=== PATIENT | male | born 1985 | race African-American/Black ===

== ENCOUNTER 2025-02-12 20:10 | Inpatient (IN) | payer MEDICAID, OTHER ==
[~2025-02-12] VITALS: Ht 172.7 cm; Wt 128.3 kg
--- NOTE | 2025-02-12 20:21 | ED.PDOC ---
SOB-HPI HPI Comments HPI: 39 year old male presents to the emergency department via EMS with a chief complaint of hemoptysis onset 4 days. Per EMS, patient has been experiencing hemoptysis as well as BLE swelling for the past 4 days. Patient is on Eliquis and Lasix, has not been complaint with medication for the past 11 days. Currently he has 16% EF, has been seen multiple times at [facility] for similar symptoms. Denies shortness of breath, chest pain, numbness/tingling, dizziness, fever, chills. No other symptoms or modifying factors present at this time. Initial Vitals BP: 141/76 HR: 118 RR: 22 O2 Sat: 99% Temp: 98.9 F Past Medical history: IA-x3, CHF, HTN, HLD, DM, PE, DVT Past Surgical history: IVC filter Medications: Lasix, Eliquis, Metoprolol Social History: Denies smoking, ETOH, and drug use. Allergies: NKDA HPI: Poor Historian. bianca concepcion: tachy, resp distress, cough blood. obese, tachy, sob, cough REVIEW OF SYSTEMS: CONSTITUTIONAL: Denies acute: fever, diaphoresis, chills, HEAD: Denies acute: headache, photophobia Eyes: Denies acute: Double vision, vision loss, eye pain, eye discharge. EARS: Denies acute: tinnitus, hearing loss, ear discharge, ear pain, THROAT: Denies acute: sore throat, swelling, difficulty swallowing , pain with swallowing, change in voice. NECK: Denies acute: neck pain, neck swelling, stiff neck. HEART: Denies acute : chest pain, palpitations, LUNGS: Denies acute: wheezing, ABDOMEN: Denies acute: abdominal pain, Nausea, Vomiting, diarrhea, melena , hematemesis, hematochezia SKIN: Denies acute: rash, redness, lesions, itchiness. EXTREMITIES: Denies acute: calf pain, numbness, tingling, weakness, denies pain in extremity. Denies acute: Low back pain. Neuro: Denies acute: focal neurological deficit, motor or sensory focal neurological deficit, tremors, seizure like activity, confusion, dizziness, change in mental status, loss of bowel or bladder function, cauda equina like symptoms. : Denies acute: dysuria, hematuria, flank pain, increase in urinary frequency. PSYCH: Denies acute: hallucination, suicidal ideation, homicidal ideation. FEMALE: Denies acute: abnormal vaginal bleeding, foul odor, unusual discharge. PHYSICAL EXAM: General: ----moderate----acute distress, awake and alert. Head: normocephalic, atraumatic. No raccoon's eyes, no chicas sign. Neck: supple, trachea is midline, no swelling. Throat: Normal phonation. Eyes:, no erythema, no purulent discharge, no proptosis, no icterus. Heart: regular tachycardia, no significant murmur appreciated. Lungs: Mild respiratory distress, Able to speak in full sentences. No wheezing, no rhonchi, no crackles. No stridors Clear to auscultation bilaterally. Abdomen: non tender to palpation, non distended, soft, no guarding, no rebound, + bowel sounds. Obese Neuro: Awake, Alert, oriented to name, self, situation, follows commands GCS=15. Speech is normal. Skin: no petechia, no purpura, no cyanosis, non-pale, not jaundice. Lower extremities: --2/4 bilateral - Pitting edema no deformity, no focal swelling, no calf TTP. Makes eye contact. moves all four extremities. Face: no apparent facial droop. ED COURSE: DISCLAIMER: This medical document was created using an electronic medical record system with voice recognition software and computerized dictation system. Although this document has been carefully reviewed, there might still be some phonetic and typographical errors. Occasional wrong-word or "sound-alike" substitutions may have occurred due to the inherent limitations of voice recognition software. These areas are purely typographical due to imperfections of the software programs and do not reflect any compromise in the patient's medical care. Please read the chart carefully and recognize, using context, where these substitutions have occurred. Time Seen by MD: 20:10 Reviewed notes: Medications, Allergies Information Source: Patient, Emergency Med Personnel Mode of Arrival: EMS Timing: Days Duration: Since onset Prehospital treatment: None Past Medical History PAST MEDICAL HISTORY: CHF, DM, High Lipids, HTN, IA, PE Past Medical History (Other): DVT Surgical History (Other): IVC filter Family History Family History: Reviewed,noncontributory to illness, No family hx of Cancer, No family hx of DM, No family hx of Heart lydia, No family hx of HTN, No family hx ofKidney lydia, No family hx of Liver lydia, No family hx of Lung lydia, No family hx of Stroke Social History Smoker: Non-Smoker Alcohol: Denies ETOH Use Drugs: Denies Drug Use Lives In: Home EKG EKG : Pulse Rate (adult): 116 Cardiac Rhythm: ST ST: Nonsp (T wave lead I, and V6) Was a procedure done? Was a procedure done?: No X-Ray, Labs, Meds, VS Vital Signs Date Time Temp Pulse Resp B/P (MAP) Pulse Ox O2 Delivery O2 Flow Rate FiO2 02/12/25 21:00 115 02/12/25 20:22 98.8 118 22 141/76 99 98.8 02/12/25 20:21 116 02/12/25 20:17 116 Lab Test 02/12/25 21:25 02/12/25 21:00 02/12/25 20:40 Range/Units Urine Color Pending Urine Clarity Pending Urine pH Pending Urine Specific [place] Pending Urine Protein Pending Urine Ketones Pending Urine Blood Pending Urine Nitrite Pending Urine Bilirubin Pending Urine Urobilinogen Pending Urine Leukocyte Esterase Pending Urine RBC Pending Urine Microscopic WBC Pending Urine Squamous Epithelial Cells Pending Urine Bacteria Pending Urine Glucose Pending Troponin I High Sensitivity Pending 75 *H </=54 ng/L Influenza Type A Antigen Pending Influenza Type B Antigen Pending SARS-CoV-2 Antigen (Rapid) Pending White Blood Count 26.0 H 4.4-10.8 10^3/uL Red Blood Count 4.64 4.5-5.90 10^6/uL Hemoglobin 12.7 L 13.5-17.5 g/dL Hematocrit 39.2 L 41.0-53.0 % Mean Corpuscular Volume 84.4 80.0-100.0 fL Mean Corpuscular Hemoglobin 27.3 L 28.0-32.0 pg Mean Corpuscular Hemoglobin Concent 32.4 32.0-36.0 g/dL Red Cell Distribution Width 14.2 11.8-14.3 % Platelet Count 315 140-450 10^3/uL Mean Platelet Volume 9.8 6.9-10.8 fL Neutrophils (%) (Auto) 37.0-80.0 % Lymphocytes (%) (Auto) 10.0-50.0 % Monocytes (%) (Auto) 0.0-12.0 % Basophils (%) (Auto) 0.0-2.0 % Neutrophils # (Auto) 1.6-8.6 10 ^3/uL Lymphocytes # (Auto) 0.4-5.4 10 ^3/uL Monocytes # (Auto) 0-1.3 10 ^3/uL Differential Total Cells Counted Pending Neutrophils % (Manual) Pending Band Neutrophils % (Manual) Pending Lymphocytes % (Manual) Pending Monocytes % (Manual) Pending Eosinophils % (Manual) Pending Basophils % (Manual) Pending Metamyelocytes % (manual) Pending Myelocytes % (Manual) Pending Promyelocytes % (Manual) Pending Blast Cells % (Manual) Pending Reactive Lymphocytes Pending Platelet Estimate Pending Prothrombin Time Pending Prothrombin Time INR Pending Activated Partial Thromboplast Time Pending Sodium Level 134 L 136-145 mmol/L Potassium Level 4.6 3.5-5.1 mmol/L Chloride Level 99 98-107 mmol/L Carbon Dioxide Level 22 20-31 mmol/L Anion Gap 13 5-15 Blood Urea Nitrogen 17 9-23 mg/dL Creatinine 1.58 H 0.700-1.30 mg/dL Glomerular Filtration Rate Calc 56 >90 mL/min BUN/Creatinine Ratio 10.8 10.0-20.0 Serum Glucose 119 H 74-106 mg/dL Lactic Acid Level 2.2 *H 0.4-2.0 mmol/L Calcium Level 8.7 8.7-10.4 mg/dL Magnesium Level 1.9 1.6-2.6 mg/dL Total Bilirubin 2.6 H 0.2-1.0 mg/dL Aspartate Amino Transferase (AST) 71 H 13-40 U/L Alanine Aminotransferase (ALT) 72 H 7-40 U/L Alkaline Phosphatase 83 46-116 U/L B-Type Natriuretic Peptide 3033.48 0-100 pg/mL Total Protein 7.1 5.7-8.2 g/dL Albumin 3.8 3.2-4.8 g/dL [facility] [id number] [facility] [address] Ph: [phone] DIAGNOSTIC IMAGING Diagnostic Imaging Report : [id number] Signed PATIENT: BIANCA CONCEPCION ACCT: [id number] UNIT: [id number] : 1985 LOC: ER ROOM / BED: / AGE / SEX: 39 / M ADM STATUS: REG ER SERVICE 14 ORDERING PHYSICIAN: ADELINE CAMPOVERDE DO PROCEDURE(s): CXRP - CHEST PORTABLE REASON: sob ORDER NUMBER(s): [id number], ACCESSION NUMBER(s): [id number] CHEST RADIOGRAPH INDICATION: sob TECHNIQUE: Single frontal view of the chest was obtained COMPARISON: None FINDINGS: Lines and Tubes: None Lungs: Questionable mild interstitial pulmonary edema. Pleura: No effusion. No pneumothorax. Cardiomediastinal contours: Cardiomegaly. Bones: Unremarkable IMPRESSION: 1. Cardiomegaly. 2. Questionable mild interstitial pulmonary edema. ATED BY: CHALO HASTINGS MD DICTATED DATE/TIME: 02/12/252044 SIGNED BY: CHALO HASTINGS MD SIGNED DATE/TIME: 02/12/252044 CC: Time of 1ST Reevaluation: 20:40 Reevaluation 1ST: Unchanged Patient Education/Counseling: Diagnosis, Treatment Family Education/Counseling: No Family Present Departure 1 Departure Time of Disposition: 20:46 Impression: Primary Impression: Acute respiratory distress Additional Impressions: Nonadherence to medication CHF exacerbation Fever Sepsis Leukocytosis Elevated troponin Disposition: ADMITTED INPATIENT Admit to: [facility] Condition: Guarded Discharged With: Self Critical Care Note Critical Care Time?: No I personally scribed for ADELINE CAMPOVERDE DO ([email or web address]) on 02/12/25 at 20:21. Electronically submitted by Colleen Rivero ([email or web address]). I personally scribed for ADELINE CAMPOVERDE DO ([email or web address]) on 02/12/25 at 20:51. Electronically submitted by Colleen Rivero ([email or web address]). I personally scribed for ADELINE CAMPOVERDE DO ([email or web address]) on 02/12/25 at 21:16. Electronically submitted by Colleen Rivero ([email or web address]). ADELINE CAMPOVERDE DO Feb 12, 2025 20:21
--- NOTE | 2025-02-12 20:47 | DVH ---
CHEST RADIOGRAPH INDICATION: sob TECHNIQUE: Single frontal view of the chest was obtained COMPARISON: None FINDINGS: Lines and Tubes: None Lungs: Questionable mild interstitial pulmonary edema. Pleura: No effusion. No pneumothorax. Cardiomediastinal contours: Cardiomegaly. Bones: Unremarkable IMPRESSION: 1. Cardiomegaly. 2. Questionable mild interstitial pulmonary edema.
[2025-02-12 20:53] VITALS: O2SAT 93
[2025-02-12 20:59] LABS: Hematocrit 39.2 % (41.0-53.0); Hemoglobin 12.7 g/dL (13.5-17.5); Mean Corpuscular Hemoglobin 27.3 pg (28.0-32.0); Mean Corpuscular Volume 84.4 fL (80.0-100.0)
[2025-02-12 21:16] LABS: Albumin 3.8 g/dL (3.2-4.8); Alkaline Phosphatase 83 U/L (46-116); Anion Gap 13 (5-15); BUN/Creatinine Ratio 10.8 (10.0-20.0); Blood Urea Nitrogen 17 mg/dL (9-23); Calcium 8.7 mg/dL (8.7-10.4); Carbon Dioxide 22 mmol/L (20-31); Chloride 99 mmol/L (98-107); Magnesium 1.9 mg/dL (1.6-2.6); Potassium 4.6 mmol/L (3.5-5.1); Total Protein 7.1 g/dL (5.7-8.2)
[2025-02-12 21:28] LABS: Alanine Aminotransferase 72 U/L (7-40); Bilirubin, Total 2.6 mg/dL (0.2-1.0); Glucose 119 mg/dL (74-106); Sodium 134 mmol/L (136-145)
[2025-02-12 21:33] LABS: Lactic Acid w/Reflex 2.2 mmol/L (0.4-2.0)
[2025-02-12] MEDS: VANCOMYCIN 1GM/250ML KIT 250 ML IV ONE (21:43)
[2025-02-12] MEDS: FUROSEMIDE 100 MG/10ML VIAL IV ONE (21:44)
[2025-02-12 21:48] LABS: INR 1.37 (0.9-1.15); Partial Thromboplastin Time 33.4 SEC (24.5-34.5); Prothrombin Time 14.1 sec (9.3-11.8)
--- NOTE | 2025-02-12 21:50 | ECG ---
[facility] Test Date: 2025-02-12 Test Time: 20:17:53 Pat Name: BIANCA MICHELE Department: [facility] ED Patient ID: [id number] Room: 0223T Gender: M Lacquerer: KANDACE : 1985 Requested By: ADELINE CAMPOVERDE Order Number: [id number] Reading MD: Justin Dowell Measurements Intervals Filley Rate: 116 P: 38 DE: 137 QRS: 84 QRSD: 152 T: 243 QT: 333 QTc: 463 Interpretive Statements Sinus tachycardia LAE, consider biatrial enlargement Nonspecific intraventricular conduction delay Borderline T abnormalities, lateral leads Electronically Signed On 02-15-2025 10:30:30 PST by Justin Dowell Please click the below link to view image of tracing.
[2025-02-12 21:53] LABS: COVID19 ANTIGEN SOFIA FIA NEGATIVE (NEGATIVE)
[2025-02-12] MEDS: ACETAMINOPHEN 325 MG TAB PO ONE (21:54)
[2025-02-12 22:03] LABS: Total Cells Counted 100.0 (100)
[2025-02-12 22:04] LABS: Anisocytosis Slight
[2025-02-12 23:15] LABS: Urine Protein, UAD 2+ (Negative)
[2025-02-12 23:23] LABS: Amphetamine Screen, Urine Neg (NEGATIVE)
[2025-02-12 23:29] LABS: Barbiturate Scree,Urine Neg (NEGATIVE); Benzodiazephine Screen, Urine Neg (NEGATIVE); Cannabinoid Screen, Urine Neg (NEGATIVE); Cocaine Screen, Urine Neg (NEGATIVE); Opiate Scree,Urine Neg (NEGATIVE); Phencyclidine Screen, Urine Neg (NEGATIVE)
[2025-02-12] MEDS: CEFEPIME 1GM/50ML 50 ML IV ONE (23:43)
[2025-02-12] MEDS ORDERED: ONDANSETRON HCL 4 MG/2 ML VIAL IV PRN (23:45)
[2025-02-13] VITALS (9 sets, daily range): BP systolic 102–162; BP diastolic 67–79; PULSE 95–107; RESP 17–20; TEMP 97.6–98.8; O2SAT 95–98
[2025-02-13] MEDS: ACETAMINOPHEN 325 MG TAB PO SCH
--- NOTE | 2025-02-13 00:34 | DVH ---
Bilateral lower extremity venous duplex CLINICAL HISTORY: r/o dvt COMPARISON: None TECHNIQUE: Duplex Doppler evaluation of the deep venous systems of both lower extremities from the common femoral veins to the popliteal veins including color Doppler and spectral/pulsed waveform analysis was performed. FINDINGS: RIGHT SIDE: The common femoral vein demonstrates appropriate compressibility and waveform variability. There is compressibility/patency of the great saphenous vein at the proximal thigh. The femoral vein demonstrates appropriate compressibility and waveform variability. The deep femoral vein demonstrates appropriate compressibility and waveform variability. The popliteal vein demonstrates appropriate compressibility and waveform variability. There is normal compressibility at the tibioperoneal trunk. LEFT SIDE: The common femoral vein demonstrates appropriate compressibility and waveform variability. There is compressibility/patency of the great saphenous vein at the proximal thigh. The femoral vein demonstrates appropriate compressibility and waveform variability. The deep femoral vein demonstrates appropriate compressibility and waveform variability. The popliteal vein demonstrates appropriate compressibility and waveform variability. There is normal compressibility at the tibioperoneal trunk. IMPRESSION: 1. No right or left femoropopliteal venous thrombosis.
[2025-02-13] MEDS: IOHEXOL 350 MG/ML 100ML IJ ONE (01:22)
[2025-02-13] MEDS: AZITHROMYCIN 250 MG TAB PO ONE (02:05)
[2025-02-13] MEDS: FUROSEMIDE 40 MG/4 ML VIAL IV ONE (02:09)
[2025-02-13] MEDS: SPIRONOLACTONE 25 MG TAB PO ONE (02:09)
--- NOTE | 2025-02-13 02:13 | DVHHPRES ---
History of Present Illness Resident Creating Document: NAMAN HERNANDEZ History of Present Illness Patient is a 39-year-old male with past medical history of HFrEF, hyperlipidemia, PE, DVT, hypertension who came to the ED with chief complaints of bilateral leg swelling since 4 days and shortness of breaths since yesterday patient also states that he has had hemoptysis since 3 days, dry cough. Patient states that he has not been taking his medication since 11 days due to pharmacy issues. Patient states that his current ejection fraction is 16% which was in in [facility]. Patient denies any fever, chills, nausea, vomiting. PMHx: HFrEF, hyperlipidemia, PE, DVT, hypertension PSHx: Denies Family history: reviewed, noncontributory Social history: denies smoking, drinking, drug use but states that he is exposed to passive smoking from coworkers Home medication: Eliquis, Lasix, metoprolol, Jardiance, Entresto, Allergic history: denies Patient seen at bedside. Patient denies any shortness for breath, chest pain, palpitations, nausea, vomiting. patient states his leg swelling has become worse since 4 days. Review of Systems Constitutional: No: Fever, Chills, Sweats, Weakness, Malaise, Other Eyes: No: Pain, Vision change, Conjunctivae inflammation, Eyelid inflammation, Other, Redness ENT: No: Ear pain, Ear discharge, Nose pain, Nose discharge, Nose congestion, M outh pain, Mouth swelling, Throat pain, Throat swelling, Other Respiratory: Cough, Shortness of breath, Hemoptysis; No: Dry, SOB with excertion, Wheezing, Pleuritic Pain, Sputum, Wheezing, Other Cardiovascular: No: Chest Pain, Palpitations, Orthopnea, Paroxysmal Noc. Dyspnea, Edema, Lt Headedness, Other Gastrointestinal: No: Nausea, Vomiting, Abdominal Pain, Diarrhea, Constipation, Melena, Hematochezia, Other Genitourinary: No Dysuria, No Frequency, No Incontinence, No Hematuria, No Retention, No Other Musculoskeletal: No: other, neck pain, shoulder pain, arm pain, back pain, hand pain, leg pain, foot pain Skin: No: Rash, Lesions, Jaundice, Bruising, Other Neurological: No: Weakness, Numbness, Incoordination, Change in speech, Confusion, Seizures, Other Allergies: Coded Allergies: NO KNOWN ALLERGIES (Unverified , 02/12/25) Medications Current Medications Medications Dose Ordered Sig/Laine Route Start Time Stop Time Status Last Admin Dose Admin Ondansetron HCl 4 mg Q4HP PRN IV 02/12/25 23:45 Acetaminophen 650 mg Q6HR PO 02/13/25 00:00 Exam Vital Signs Vital Signs Date Time Temp Pulse Resp B/P (MAP) Pulse Ox O2 Delivery O2 Flow Rate FiO2 02/13/25 00:43 99.3 02/13/25 00:00 103 101/66 (78) 95 02/12/25 20:53 Room Air* 0 21 02/12/25 20:53 21 Exam General: Patient alert and oriented in person, place and time. Patient following commands. HEENT: Normocephalic, atraumatic, moist mucous membranes Respiratory/pulmonary: Clear lungs bilaterally, vesicular murmurs present in almost all lung nur, no associated crackles or wheezes. Cardiovascular: Normal heart sounds S1 and S2 with no associated murmurs Abdomen: Abdomen nondistended, there is no pain to palpation in any of the abdominal quadrants, no palpable masses. Abdomen obese Extremities: bilateral 2+ pitting edema, hyperpigmented Peripheral Pulses: 3+ Radial (R). 3+ Radial (L). 3+ Dorsalis pedis (R). 3+ Dorsalis pedis(L) Skin: No rashes or pruritus, there is no sacral edema present at this time. Labs/Xrays Labs Test 02/12/25 23:40 02/12/25 22:48 02/12/25 22:34 02/12/25 21:00 Range/Units Troponin I High Sensitivity 70 *H </=54 ng/L Urine Color Yellow Yellow Urine Clarity Clear Clear Urine pH 6.0 5.0-9.0 Urine Specific [place] 1.012 1.001-1.035 Urine Protein 2+ H Negative Urine Ketones Negative Negative Urine Blood 2+ H Negative /uL Urine Nitrite Negative Negative Urine Bilirubin Negative Negative Urine Urobilinogen 2 H Negative mg/dL Urine Leukocyte Esterase Negative Negative /uL Urine RBC 1 0 - 3 /hpf Urine Microscopic WBC < 1 0-3 /HPF Urine Squamous Epithelial Cells Few <5 /hpf Urine Bacteria None Seen /hpf Urine Granular Casts Few 0 /lpf Urine Glucose 4+ H Normal mg/dL Urine Opiates Screen Neg NEGATIVE Urine Fentanyl Screen Neg NEGATIVE Urine Barbiturates Screen Neg NEGATIVE Urine Phencyclidine Screen Neg NEGATIVE Urine Amphetamines Screen Neg NEGATIVE Urine Benzodiazepines Screen Neg NEGATIVE Urine Cocaine Screen Neg NEGATIVE Urine Cannabinoids Screen Neg NEGATIVE Lactic Acid Level 1.6 0.4-2.0 mmol/L Influenza Type A Antigen Negative Negative Influenza Type B Antigen Negative Negative SARS-CoV-2 Antigen (Rapid) Negative NEGATIVE Test 02/12/25 20:40 Range/Units White Blood Count 26.0 H 4.4-10.8 10^3/uL Red Blood Count 4.64 4.5-5.90 10^6/uL Hemoglobin 12.7 L 13.5-17.5 g/dL Hematocrit 39.2 L 41.0-53.0 % Mean Corpuscular Volume 84.4 80.0-100.0 fL Mean Corpuscular Hemoglobin 27.3 L 28.0-32.0 pg Mean Corpuscular Hemoglobin Concent 32.4 32.0-36.0 g/dL Red Cell Distribution Width 14.2 11.8-14.3 % Platelet Count 315 140-450 10^3/uL Mean Platelet Volume 9.8 6.9-10.8 fL Neutrophils (%) (Auto) 37.0-80.0 % Lymphocytes (%) (Auto) 10.0-50.0 % Monocytes (%) (Auto) 0.0-12.0 % Basophils (%) (Auto) 0.0-2.0 % Neutrophils # (Auto) 1.6-8.6 10 ^3/uL Lymphocytes # (Auto) 0.4-5.4 10 ^3/uL Monocytes # (Auto) 0-1.3 10 ^3/uL Differential Total Cells Counted 100.0 100 Neutrophils % (Manual) 77 37.0-80.0 Band Neutrophils % (Manual) 2 Lymphocytes % (Manual) 10 10.0-50.0 Monocytes % (Manual) 11 0-12 Eosinophils % (Manual) 0 0-7 Basophils % (Manual) 0 0.0-2.0 Metamyelocytes % (manual) 0 Myelocytes % (Manual) 0 Promyelocytes % (Manual) 0 Blast Cells % (Manual) 0 Reactive Lymphocytes 0 Platelet Estimate Adequate Large Platelets Few Anisocytosis (manual) Slight Prothrombin Time 14.1 H 9.3-11.8 sec Prothrombin Time INR 1.37 H 0.9-1.15 Activated Partial Thromboplast Time 33.4 24.5-34.5 SEC Sodium Level 134 L 136-145 mmol/L Potassium Level 4.6 3.5-5.1 mmol/L Chloride Level 99 98-107 mmol/L Carbon Dioxide Level 22 20-31 mmol/L Anion Gap 13 5-15 Blood Urea Nitrogen 17 9-23 mg/dL Creatinine 1.58 H 0.700-1.30 mg/dL Glomerular Filtration Rate Calc 56 >90 mL/min BUN/Creatinine Ratio 10.8 10.0-20.0 Serum Glucose 119 H 74-106 mg/dL Calcium Level 8.7 8.7-10.4 mg/dL Magnesium Level 1.9 1.6-2.6 mg/dL Total Bilirubin 2.6 H 0.2-1.0 mg/dL Aspartate Amino Transferase (AST) 71 H 13-40 U/L Alanine Aminotransferase (ALT) 72 H 7-40 U/L Alkaline Phosphatase 83 46-116 U/L B-Type Natriuretic Peptide 3033.48 0-100 pg/mL Total Protein 7.1 5.7-8.2 g/dL Albumin 3.8 3.2-4.8 g/dL SEPSIS Sepsis Screen Date sepsis recognized/suspect: Feb 13, 2025 Time Sepsis recognized/suspect: 0025 Recent Procedure: No On Antibiotic Therapy: No Respiratory Rate >20: Yes Heart Rate >90: Yes Temp<36 C (96.8 F) or >38.3 C: Yes SBP <90 or MAP <65 mmHG: No New Acute Mental Status Change: No Is the patient on CPAP, BIPAP,: No Physician Orders Service Restorer Emergency (02/12/25 ) Heplock Iv (02/12/25 ) Chest Portable (02/12/25 20:15) Accucheck (02/12/25 21:16) Blood Culture (02/12/25 21:16) Notify Md If Map <65 Or Bp<90 (02/12/25 21:16) If Map<65 Start Vasopressor (02/12/25 21:16) Sepsis Fluid Exclusion: (02/12/25 21:16) Sepsis Reassesment After Fluid (02/12/25 22:16) Admit (02/12/25 23:35) Code Status (02/12/25 23:35) Ondansetron Hcl (Zofran) (02/12/25 23:45) Complete Blood Count (02/13/25 04:00) Comprehensive Metabolic Panel (02/13/25 04:00) Cardiac Diet-2gna,Lofat,Lochol (02/13/25 Breakfast) Echo 2d Mode Cardiac Dop (02/12/25 23:35) Condition: Serious (02/12/25 23:35) Acetaminophen Tablet (Tylenol Tablet) (02/13/25 00:00) Bedrest With Bathroom Privileg (02/12/25 23:35) Oxygen By Nasal Cannula (02/12/25 23:35) Stat Ekg For Chest Pain (02/12/25 23:35) Notify Md Of Changes From Base (02/12/25 23:35) Chemic Mangler For 24 Hours (02/12/25 23:35) Emergency Dysrhythmia Protocol (02/12/25 23:35) Rhythm Strips Once Every Shift (02/12/25 23:35) Bilat Lower Dvt (02/12/25 23:40) Ct Angio Chest Contrast (02/13/25 00:09) Enoxaparin Sodium (Lovenox) (02/13/25 10:00) Respiratory Culture W/ Gs (02/13/25 01:28) Covid19 Antigen Jess (02/13/25 ) Rapid Influenza A&B (02/13/25 01:28) Thyroid Stimulating Hormone (02/13/25 01:28) Hemoglobin A1c (02/13/25 01:34) Furosemide Injection (Lasix Injection) (02/14/25 10:00) Spironolactone (Aldactone) (02/14/25 10:00) Azithromycin Tablet (Zithromax Tablet) (02/14/25 10:00) Document Home Meds (02/13/25 ) Ceftriaxone 2gm/50ml (Rocephin 2gm/50ml) (02/13/25 02:00) Ceftriaxone 2gm/50ml (Rocephin 2gm/50ml) (02/13/25 10:00) Strict I&O (02/13/25 ) Vital Signs Date Time Temp Pulse Resp B/P (MAP) Pulse Ox O2 Delivery O2 Flow Rate FiO2 02/13/25 00:43 99.3 02/13/25 00:00 99.3 103 101/66 (78) 95 99.3 02/12/25 23:00 99.3 106 113/60 (77) 95 99.3 02/12/25 21:54 102.5 02/12/25 21:44 140/36 02/12/25 21:00 115 02/12/25 20:53 93 Room Air* 0 21 02/12/25 20:53 102.5 111 21 134/85 (101) 93 102.5 02/12/25 20:22 98.8 118 22 141/76 99 98.8 02/12/25 20:21 116 02/12/25 20:17 116 Laboratory Tests Test 02/12/25 20:40 02/12/25 22:34 Lactic Acid Level 2.2 mmol/L (0.4-2.0) *H 1.6 mmol/L (0.4-2.0) White Blood Count 26.0 10^3/uL (4.4-10.8) H Medications Medications Dose Ordered Sig/Laine Route Start Time Stop Time Status Last Admin Dose Admin Acetaminophen 650 mg ONCE ONCE PO 02/12/25 22:00 02/12/25 22:01 DC 02/12/25 21:54 650 MG Cefepime HCl 50 ml @ 12.5 mls/hr ONCE ONCE IV 02/12/25 21:30 02/13/25 01:29 DC 02/12/25 23:43 12.5 MLS/HR Furosemide 60 mg ONCE ONCE IV 02/12/25 20:15 02/12/25 20:17 DC 02/12/25 21:44 60 MG Vancomycin HCl 250 ml @ 250 mls/hr ONCE ONCE IV 02/12/25 21:30 02/12/25 22:29 DC 02/12/25 21:43 250 MLS/HR Assessment/Plan Assessment/Plan Sepsis due to pneumonia Acute hypoxic respiratory failure due to pneumonia / CHF exacerbation Acute on chronic CHF exacerbation Volume overload Pulmonary embolism - CT angio showed Occlusive right lower lobar branch pulmonary embolus and multifocal nonocclusive subsegmental branch pulmonary emboli. No definite evidence of right heart strain. Small bilateral pleural effusions and multifocal partially consolidative bilateral lower lobe parenchymal infiltrate - chest x-ray showed Cardiomegaly. Questionable mild interstitial pulmonary edema. - heparin drip - IV fluids restricted due to CHF - blood, sputum culture - Check COVID flu - check echo - IV ceftriaxone - Lasix 40 - spironolactone 25 - azithromycin - resume home meds Possible KUMAR due to VMN - monitor labs - avoid nephrotoxic drugs - strict I&O NSTEMI type 2 - monitor labs Transaminitis - monitor labs Morbid obesity BMI 44.2 - patient counseled on diet, exercise, lifestyle modification for 18 minutes Diet: Cardiac DVT prophylaxis: Heparin Goals of care addressed with the patient for more than 27 minutes: Full code status Case discussed with Dr. Jo , patient and nurse Plan discussed with: Patient My Orders Orders - NAMAN HERNANDEZ RESIDENT Procedure Category Date Status Time Admit ADMIT 02/12/25 Transmitted 23:35 Code Status CODE 02/12/25 Transmitted 23:35 Ondansetron Hcl PHA 02/12/25 In Process (Zofran) 23:45 Complete Blood Count LAB 02/13/25 Logged 04:00 Comprehensive LAB 02/13/25 Logged Metabolic Panel 04:00 Cardiac DIET 02/13/25 Transmitted Diet-2gna,Lofat,Lochol Breakfast Echo 2d Mode Cardiac US 02/12/25 Logged DOP 23:35 Condition: Serious SHOSHANA 02/12/25 In Process 23:35 Acetaminophen Tablet PHA 02/13/25 In Process (Tylenol Tablet) 00:00 Bedrest With Bathroom SHOSHANA 02/12/25 In Process Privileg 23:35 Oxygen By Nasal RT 02/12/25 Transmitted Cannula 23:35 Stat Ekg For Chest SHOSHANA 02/12/25 In Process Pain 23:35 Notify Of Changes SHOSHANA 02/12/25 In Process From Base 23:35 Chemic Mangler For SHOSHANA 02/12/25 In Process 24 Hours 23:35 Emergency Dysrhythmia SHOSHANA 02/12/25 In Process Protocol 23:35 Rhythm Strips Once SHOSHANA 02/12/25 In Process Every Shift 23:35 Bilat Lower Dvt US 02/12/25 Resulted 23:40 Enoxaparin Sodium PHA 02/13/25 In Process (Lovenox) 10:00 Respiratory Culture MARGARITA 02/13/25 Logged W/ Gs 01:28 Covid19 Antigen Jess LAB 02/13/25 Logged Rapid Influenza A&B LAB 02/13/25 Logged 01:28 Thyroid Stimulating LAB 02/13/25 Logged Hormone 01:28 Hemoglobin A1c LAB 02/13/25 Logged 01:34 Furosemide Injection PHA 02/14/25 In Process (Lasix Injection) 10:00 Spironolactone PHA 02/14/25 In Process (Aldactone) 10:00 Azithromycin Tablet PHA 02/14/25 In Process (Zithromax Tablet) 10:00 Document Home Meds ED NURSING 02/13/25 Transmitted Ceftriaxone 2gm/50ml PHA 02/13/25 Logged (Rocephin 2gm/50ml) 02:00 Ceftriaxone 2gm/50ml PHA 02/13/25 Logged (Rocephin 2gm/50ml) 10:00 Strict I&O ED NURSING 02/13/25 Transmitted Visit Coding STANDARD RES Billing Provider: BRANDAN JO MD Date of Service if different f: Feb 12, 2025 Common Visit Codes: 37640-[id number] INP/OBS CARE (HIGH) Secondary Visit Codes: 59279-[id number] CARE PLAN 30 MINUTES NAMAN HERNANDEZ RESIDENT Feb 13, 2025 02:13
[2025-02-13] MEDS ORDERED: APIX5TAB PO (02:29)
[2025-02-13] MEDS ORDERED: FURO1TAB31 PO (02:29)
[2025-02-13] MEDS ORDERED: HYDR-3682 PO (02:29)
[2025-02-13] MEDS ORDERED: SACU1TAB PO (02:29)
[2025-02-13] MEDS ORDERED: EMPA1TAB3 PO (02:29)
[2025-02-13] MEDS ORDERED: SPIR25TA PO (02:29)
[2025-02-13] MEDS ORDERED: METO-289 PO (02:29)
--- NOTE | 2025-02-13 02:45 | DVH ---
CTA Chest with intravenous contrast INDICATION: PE COMPARISON: XY CHEST PORTABLE on DOS: 02/12/25 TECHNIQUE: Multidetector spiral CTA of the chest was performed of the chest with intravenous contrast. PULMONARY ANGIOGRAPHY PROTOCOL was utilized using a bolus- tracking technique centered on the main pulmonary artery. Axial, coronal and sagittal multiplanar and MIP reformats were performed. Radiation Dose : 1. Chest: CTDI volume is 29.2 mGy. Dose-length product is 1044.58 mGy*cm The dose indicators for CT are the volume Computed Tomography (CT) Dose Index (CTDIvol) and the Dose Length Product (DLP), and are measured in units of mGy and mGy-cm, respectively. These indicators are not patient dose, but values generated from the CT scanner acquisition factors. The report includes radiation exposure data for exposures received during this examination. FINDINGS: Pulmonary artery: Occlusive filling defect within the right lower lobe branch of the pulmonary artery consistent with pulmonary embolus. Additional smaller nonocclusive filling defects noted within subsegmental branches of all lobes. No definite evidence of right heart strain. Lower neck: Normal thyroid. Lungs: Small bilateral pleural effusions, [id number]-left. Multifocal partially consolidative appearing bilateral lower lobe parenchymal infiltrate. Heart/Vascular Structures: The heart is enlarged. No evidence of pericardial effusion. Lymph Nodes: No adenopathy Musculoskeletal: No acute osseous abnormality. Soft tissues: Normal. Upper abdomen: Limited portions of the upper abdomen are unremarkable. IMPRESSION: 1. Occlusive right lower lobar branch pulmonary embolus and multifocal nonocclusive subsegmental branch pulmonary emboli. No definite evidence of right heart strain. 2. Small bilateral pleural effusions and multifocal partially consolidative bilateral lower lobe parenchymal infiltrate. Critical Result: Pulmonary embolus Findings discussed with NAMAN HERNANDEZ at 02/13/2025 05:42 AM EST, and acknowledged receipt and understanding of the findings.
[2025-02-13] MEDS ORDERED: HEPARIN SODIUM (PORCINE) 5000 UNITS/ML 1ML VIAL IV ONE (03:00)
[2025-02-13 03:32] LABS: INR 1.35 (0.9-1.15); Partial Thromboplastin Time 32.5 SEC (24.5-34.5); Prothrombin Time 13.9 sec (9.3-11.8)
[2025-02-13] MEDS: HEPARIN DRIP/D5W 100UNITS/ML 250 ML IV SCH ×3 (04:28→18:45)
[2025-02-13 05:29] LABS: COVID19 ANTIGEN SOFIA FIA NEGATIVE (NEGATIVE)
[2025-02-13] MEDS: HEPARIN SODIUM (PORCINE) 5000 UNITS/ML 1ML VIAL IV ONE (06:11)
[2025-02-13] MEDS: SACUBITRIL-VALSARTAN 24mg/26mg TAB PO SCH (09:17)
[2025-02-13] MEDS: METOPROLOL SUCCINATE XL 50 MG TAB PO SCH (09:17)
[2025-02-13 09:28] LABS: Hematocrit 42.2 % (41.0-53.0); Hemoglobin 13.7 g/dL (13.5-17.5); Mean Corpuscular Hemoglobin 27.5 pg (28.0-32.0); Mean Corpuscular Volume 84.6 fL (80.0-100.0); Nucleated Red Blood Cells % 0.1 %
[2025-02-13 09:36] LABS: Albumin 3.8 g/dL (3.2-4.8); Alkaline Phosphatase 100 U/L (46-116); Anion Gap 13 (5-15); BUN/Creatinine Ratio 12.9 (10.0-20.0); Blood Urea Nitrogen 18 mg/dL (9-23); Calcium 8.9 mg/dL (8.7-10.4); Carbon Dioxide 25 mmol/L (20-31); Chloride 98 mmol/L (98-107); Glucose 103 mg/dL (74-106); Potassium 4.1 mmol/L (3.5-5.1); Sodium 136 mmol/L (136-145); Total Protein 7.2 g/dL (5.7-8.2)
[2025-02-13 09:38] LABS: Alanine Aminotransferase 68 U/L (7-40); Bilirubin, Total 2.1 mg/dL (0.2-1.0)
[2025-02-13] MEDS ORDERED: ENOXAPARIN SOD 40 MG/0.4 ML SYRINGE SC SCH (10:00)
[2025-02-13 11:06] LABS: INR 1.28 (0.9-1.15); Partial Thromboplastin Time 36.2 SEC (24.5-34.5); Prothrombin Time 13.2 sec (9.3-11.8)
--- NOTE | 2025-02-13 12:10 | CONS ---
Pharmacy Clinical Information: INCREASE HEPARIN RATE TO 22 ML/HR DUE TO APTT OF 36.2 02/13 1034 PER RX PROT OCOL. NEXT APTT ON 02/13 AT 1800. SUMIT PINA CONFIRMED AND READ BACK BASSEM MONCADA PHARMACIST Feb 13, 2025 12:10
[2025-02-13] MEDS ORDERED: PROMETHAZINE HCL 6.25 MG/5 ML ORAL SYRUP PO PRN (15:30)
[2025-02-13] MEDS: EMPAGLIFLOZIN 10 MG TAB PO SCH (16:43)
[2025-02-13] MEDS: PROMETHAZINE HCL 6.25 MG/5 ML ORAL SYRUP PO ONE (16:44)
[2025-02-13 18:34] LABS: INR 1.23 (0.9-1.15); Partial Thromboplastin Time 40.0 SEC (24.5-34.5); Prothrombin Time 12.8 sec (9.3-11.8)
--- NOTE | 2025-02-13 19:09 | DVHPNRES ---
Progress Note Date Seen: Feb 13, 2025 Resident Creating Document: GIO BLEVINS RESIDENT Has the PT tested + for MRSA If YES, has PT been informed?: No Medical Necessity Reason Pt with a Central, PICC or Fol: No Subjective Review of Systems PHI Salvatore Huntley is a 39-year-old male, with past medical history of HFrEF (EF16%), hyperlipidemia, chronic PE, DVT (on Eliquis) and hypertension. The patient came to the ED with chief complaint of 4 days of bilateral leg swelling (worse on the right side), dry cough, shortness of breaths at rest, palpitations and hemoptysis. The patient denies any fever, recent long travel, chills, nausea, vomiting. His symptoms did worsen, this prompted his visit to the ED. On further questioning, the patient states that he has not been taking Eliquis for the last 11 days due to recently his pharmacy changes. The patient also states that his current ejection fraction is 16%, and he has been seen in [facility]. In the ED the patient was examined. on initial assessment CT- angio showed:pulmonary embolism with Occlusive right lower lobar branch pulmonary embolus and multifocal nonocclusive subsegmental branch pulmonary emboli. No definite evidence of right heart strain. Small bilateral pleural effusions and multifocal partially consolidative bilateral lower lobe parenchymal infiltrate.The patient was admitted for further assessment and management. PMHx: HFrEF (16%), hyperlipidemia, PE, DVT, hypertension PSHx: Denies Family history: reviewed, noncontributory Social history: denies smoking, drinking, drug use but states that he is exposed to passive smoking from coworkers Home medication: Eliquis, Lasix, metoprolol, Jardiance, Entresto, Allergic history: denies Hospital course: On 02/13/25, the patient was seen and evaluated at bedside. The patient's VS, labs and chart was reviewed. Today, the patient complains of shortness for breath and general weakness. The patient was started on heparin drip. He continues receiving IV antibiorics (Ceftriaxone, azitromycin) IV fluids, GDMT therapy for CHF. Cardiology consult was placed today, ECHO was ordered. We will continue following the progress of this patient. ROS: Constitutional: General weakness. No: Fever, Chills, Sweats, Malaise, Other Eyes: No: Pain, Vision change, Conjunctivae inflammation, Eyelid inflammation, Other, Redness ENT: No: Ear pain, Ear discharge, Nose pain, Nose discharge, Nose congestion, Mouth pain, Mouth swelling, Throat pain, Throat swelling, Other Respiratory: Cough, Shortness of breath, Hemoptysis; No: Dry, SOB with excertion, Wheezing, Pleuritic Pain, Sputum, Wheezing, Other Cardiovascular: No: Chest Pain, Palpitations, Orthopnea, Paroxysmal Noc. Dyspnea, Edema, Lt Headedness, Other Gastrointestinal: No: Nausea, Vomiting, Abdominal Pain, Diarrhea, Constipation, Melena, Hematochezia, Other Genitourinary: No Dysuria, No Frequency, No Incontinence, No Hematuria, No Retention, No Other Musculoskeletal: No: other, neck pain, shoulder pain, arm pain, back pain, hand pain, leg pain, foot pain Skin: No: Rash, Lesions, Jaundice, Bruising, Other Neurological: No: Weakness, Numbness, Incoordination, Change in speech, Confusion, Seizures, Other Allergies: No Known Allergies Objective vital signs Vital Sign Date Time Temp Pulse Resp B/P (MAP) Pulse Ox O2 Delivery O2 Flow Rate FiO2 02/13/25 17:00 98.2 99 20 110/74 (86) 95 98.2 02/13/25 08:00 Room Air* 0 21 Total Intake and Output 02/12/25 02/12/25 02/13/25 15:00 23:00 07:00 Intake Total 250 ml 50 ml Balance 250 ml 50 ml medications Current Medications Medications Dose Ordered Sig/Laine Route Start Time Stop Time Status Last Admin Dose Admin Ondansetron HCl 4 mg Q4HP PRN IV 02/12/25 23:45 Acetaminophen 650 mg Q6HR PO 02/13/25 00:00 02/13/25 17:29 650 MG Furosemide 40 mg DAILY IV 02/14/25 10:00 Spironolactone 25 mg DAILY PO 02/14/25 10:00 Azithromycin 500 mg DAILY PO 02/14/25 10:00 Ceftriaxone Sodium/Dextrose 50 ml @ 50 mls/hr DAILY IV 02/14/25 10:00 Metoprolol Succinate 100 mg DAILY PO 02/13/25 10:00 02/13/25 09:17 100 MG Sacubitril/ Valsartan 1 tab BID PO 12/24/25 10:00 02/13/25 09:17 1 TAB Pantoprazole Sodium 40 mg DAILY IV 02/14/25 10:00 Empaglifozin 10 mg DAILY PO 02/13/25 15:30 02/13/25 16:43 10 MG Promethazine HCl 6.25 mg Q6HP PRN PO 02/13/25 15:30 Heparin Sodium/ Dextrose 250 ml @ 24 mls/hr [id number] IV 02/13/25 18:45 02/13/25 18:45 24 MLS/HR Examination General: Patient alert and oriented in person, place and time. Patient following commands. HEENT: Normocephalic, atraumatic, moist mucous membranes Respiratory/pulmonary: reduced lung expansion bilaterally, mild crackles on both lung nur. Cardiovascular: Normal heart sounds S1 and S2 with no associated murmurs Abdomen: protuberant, Abdomen nondistended, there is no pain to palpation in any of the abdominal quadrants, no palpable masses. Abdomen obese Extremities: bilateral 2+ pitting edema, worsed on right side. hyperpigmented anterior tibial area on left leg. Peripheral Pulses: 3+ Dorsalis pedis (R). 3+ Dorsalis pedis(L) Skin: No rashes or pruritus, there is no sacral edema present at this time. Neurologic: Alert, oriented x3. No focal deficit. laboratory and microbiology Laboratory Tests 02/13/25 08:26 Test 02/13/25 08:26 Range/Units Serum Glucose 103 74-106 mg/dL Problem List/Assessment/Plan Problem List/Assessment/Plan #Sepsis due to pneumonia gram +/- #Acute hypoxic respiratory failure due to pneumonia / CHF exacerbation #Acute on chronic CHF exacerbation #acute pulmonary edema / overload # Acute pulmonary embolism # Hx of PE 12/2023 #KAVON likely - CT angio showed Occlusive right lower lobar branch pulmonary embolus and multifocal nonocclusive subsegmental branch pulmonary emboli. No definite evidence of right heart strain. Small bilateral pleural effusions and multifocal partially consolidative bilateral lower lobe parenchymal infiltrate - chest x-ray showed Cardiomegaly. Questionable mild interstitial pulmonary edema. 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 Cheng Patient's status and plan discussed with the patient >30min. Patient agrees with the plan Case discussed with Dr. Hargrove Plan discussed with: Patient My Orders My Orders Orders - GIO BLEVINS RESIDENT Procedure Category Date Status Time Pantoprazole PHA 02/14/25 In Process (Protonix) 10:00 * Cardiology Consult CONS 02/13/25 Transmitted 17:23 Bipap/Cpap For Sleep RT 02/13/25 Logged Apnea 17:23 Complete Blood Count LAB 02/14/25 Verified 04:00 Basic Metabolic Panel LAB 02/14/25 Verified 04:00 Visit Coding STANDARD RES Billing Provider: KAITLIN WYMAN MD Date of Service if different f: Feb 13, 2025 Common Visit Codes: [id number] INP/OBS CARE(HIGH) GIO BLEVINS RESIDENT Feb 13, 2025 19:09 ALEX ZHENG RESIDENT Feb 15, 2025 16:47
--- NOTE | 2025-02-13 20:09 | DVH ---
PROCEDURE: US ABDOMEN LIMITED Study Date and Requested Time: 02/13/2025 07:52 PM History: Transaminitis, elevated bilirrubin COMPARISON: None TECHNIQUE: Multiple high resolution stokes-scale images obtained of the right upper quadrant of the abdomen with color Doppler for evaluation of blood flow and vascularity as indicated. FINDINGS: Liver measures 20 cm in length, with homogeneous echotexture and normal contours. No evidence of focal hepatic lesions, intrahepatic or extrahepatic ductal dilatation. Common bile duct measures 0.5 cm in diameter. Gallbladder is contracted limited evaluation. Negative sonographic Sanders's sign. Pancreas is partially visualized due to overlying bowel gas Right kidney measures 11.3 cm in length, with normal contours, echotexture, and cortical thickness. No evidence of hydronephrosis, calculi, cystic or solid renal lesions. Partially visualized inferior vena cava unremarkable. IMPRESSION: Hepatomegaly. Pancreas is partially obscured by bowel gas. Gallbladder is contracted, limiting evaluation
[2025-02-14] VITALS (7 sets, daily range): BP systolic 102–122; BP diastolic 55–77; PULSE 85–109; RESP 17–20; TEMP 97.2–98.6; O2SAT 95–97
[2025-02-14 00:58] LABS: INR 1.19 (0.9-1.15); Partial Thromboplastin Time 42.0 SEC (24.5-34.5); Prothrombin Time 12.4 sec (9.3-11.8)
[2025-02-14] MEDS: HEPARIN DRIP/D5W 100UNITS/ML 250 ML IV SCH ×4 (01:41→16:30)
--- NOTE | 2025-02-14 01:58 | DVHSR ---
APPROVED REPORT EXAM: Two-dimensional and M-mode echocardiogram with Doppler and color Doppler. Blood Pressure: 102/70 mmHg INDICATION CHF RISK FACTORS Obesity: Height: 5' 8", Weight: 290 DIMENSIONS LVDd 7.1 (3.8-5.7cm) LA (2D) 5.2 (1.9-4.0cm) Aortic Root 3.0 (2.0-3.7cm) LVDs 6.8 (2.5-4.0cm) LA (MM) (1.9-4.0cm) Aortic Cusp Exc 1.9 (1.5-2.0cm) EF (%) 10.0 (55-70%) Rt. Atrium 5.6 (1.9-4.0cm) Asc. Aorta cm IVSd 1.0 (0.7-1.1cm) RV (D) (1.8-2.4cm) PWd 1.2 (0.7-1.1cm) Mitral Valve Mitral Mitral Stenosis E wave 0.70m/s MV Mean GR. mmHg A wave 0.40m/s MV Peak GR. mmHg E/A ratio 1.8 2D MVA cm2 Aortic Valve Aortic Valve Aortic Stenosis V1 0.30m/s AO Mean GR. 3mmHg V2 1.10m/s AO Peak GR. 6mmHg LVOT Diameter 2.5 (1.8-2.4cm) Doppler ANDRZEJ 1.34cm2 Pulmonic Valve V2 0.50m/s Tricuspid Valve TR Velocity 2.50m/s RVSP 30mmHg Conclusion DILATED ALL CARDIAC CHAMBERS LV EF IS 10% NORMAL VALVES NO EFFUSION IT IS DILATED CARDIOMYOPATHY
[2025-02-14 06:27] LABS: Hematocrit 41.6 % (41.0-53.0); Hemoglobin 13.5 g/dL (13.5-17.5); Mean Corpuscular Hemoglobin 27.5 pg (28.0-32.0); Mean Corpuscular Volume 84.9 fL (80.0-100.0); Nucleated Red Blood Cells % 0.0 %
[2025-02-14 06:36] LABS: Chloride 101 mmol/L (98-107); Potassium 4.2 mmol/L (3.5-5.1)
[2025-02-14 06:38] LABS: Anion Gap 11 (5-15); Calcium 8.8 mg/dL (8.7-10.4); Carbon Dioxide 24 mmol/L (20-31)
[2025-02-14 06:43] LABS: BUN/Creatinine Ratio 12.2 (10.0-20.0); Blood Urea Nitrogen 14 mg/dL (9-23); Glucose 104 mg/dL (74-106)
[2025-02-14 06:54] LABS: Sodium 136 mmol/L (136-145)
[2025-02-14 07:52] LABS: INR 1.19 (0.9-1.15); Partial Thromboplastin Time 49.8 SEC (24.5-34.5); Prothrombin Time 12.4 sec (9.3-11.8)
[2025-02-14 09:05] LABS: Triglycerides 133 mg/dL (< 150)
[2025-02-14 09:07] LABS: Cholesterol 137 mg/dL (< 200)
[2025-02-14 09:18] LABS: HDL Cholesterol 31 mg/dL (40-59)
[2025-02-14] MEDS: FUROSEMIDE 40 MG/4 ML VIAL IV SCH ×2 (09:24→17:33)
[2025-02-14] MEDS: PANTOPRAZOLE 40 MG/10 ML VIAL INJ IV SCH (09:24)
[2025-02-14] MEDS: SPIRONOLACTONE 25 MG TAB PO SCH (09:24)
[2025-02-14] MEDS: AZITHROMYCIN 250 MG TAB PO SCH (09:25)
[2025-02-14 14:00] LABS: INR 1.15 (0.9-1.15); Partial Thromboplastin Time 48.0 SEC (24.5-34.5); Prothrombin Time 12.0 sec (9.3-11.8)
--- NOTE | 2025-02-14 14:10 | CONS ---
Pharmacy Clinical Information: INCREASE HEPARIN DRIP RATE TO 2800 UNITS/HR PER APTT OF 48.0 NEXT APTT DRAW SCHEDULED FOR 1999 PER RX PROTOCOL SUMIT EDWARD CONFIRMED AND READ BACK Renate Gutierrez PHARMACIST Feb 14, 2025 14:10
--- NOTE | 2025-02-14 15:29 | DVHPNRES ---
Progress Note Date Seen: Feb 14, 2025 Resident Creating Document: GIO BLEVINS RESIDENT Has the PT tested + for MRSA If YES, has PT been informed?: No Medical Necessity Reason Pt with a Central, PICC or Fol: No Subjective Review of Systems PHI Salvatore Huntley is a 39-year-old male, with past medical history of HFrEF (EF16%), hyperlipidemia, chronic PE, DVT (on Eliquis) and hypertension. The patient came to the ED with chief complaint of 4 days of bilateral leg swelling (worse on the right side), dry cough, shortness of breaths at rest, palpitations and hemoptysis. The patient denies any fever, recent long travel, chills, nausea, vomiting. His symptoms did worsen, this prompted his visit to the ED. On further questioning, the patient states that he has not been taking Eliquis for the last 11 days due to recently his pharmacy changes. The patient also states that his current ejection fraction is 16%, and he has been seen in [facility]. In the ED the patient was examined. on initial assessment CT- angio showed:pulmonary embolism with Occlusive right lower lobar branch pulmonary embolus and multifocal nonocclusive subsegmental branch pulmonary emboli. No definite evidence of right heart strain. Small bilateral pleural effusions and multifocal partially consolidative bilateral lower lobe parenchymal infiltrate.The patient was admitted for further assessment and management. PMHx: HFrEF (16%), hyperlipidemia, PE, DVT, hypertension PSHx: Denies Family history: reviewed, noncontributory Social history: denies smoking, drinking, drug use but states that he is exposed to passive smoking from coworkers Home medication: Eliquis, Lasix, metoprolol, Jardiance, Entresto, Allergic history: denies Hospital course: On 02/13/25, the patient was seen and evaluated at bedside. The patient's VS, labs and chart was reviewed. Today, the patient complains of shortness for breath and general weakness. The patient was started on heparin drip. He continues receiving IV antibiotics (Ceftriaxone, azitromycin) IV fluids, GDMT therapy for CHF. Cardiology consult was placed today, ECHO was ordered. We will continue following the progress of this patient. On 02/14/25, the patient was seen and evaluated at bedside. The patient's VS, labs and chart was reviewed. The patient reports improvement on sob and leg swelling. The patient continues on heparin drip and receiving IV antibiotics (Ceftriaxone, azitromycin) IV fluids, GDMT therapy for CHF. Cardiology consult was request, they report that the consult will be done today. ECHO reported EF 10%, RSVP 30mmhg, dilated cardiomegaly. We will continue following up the progress of this patient. ROS: Constitutional: General weakness. No: Fever, Chills, Sweats, Malaise, Other Eyes: No: Pain, Vision change, Conjunctivae inflammation, Eyelid inflammation, Other, Redness ENT: No: Ear pain, Ear discharge, Nose pain, Nose discharge, Nose congestion, Mouth pain, Mouth swelling, Throat pain, Throat swelling, Other Respiratory: improving on Cough, Shortness of breath, no more hemoptysis; No: Dry, SOB with excertion, Wheezing, Pleuritic Pain, Sputum,or other. Cardiovascular: No: Chest Pain, Palpitations, Orthopnea, Paroxysmal Noc. Dyspnea, Edema, Lt Headedness, Other Gastrointestinal: No: Nausea, Vomiting, Abdominal Pain, Diarrhea, Constipation, Melena, Hematochezia, Other Genitourinary: No Dysuria, No Frequency, No Incontinence, No Hematuria, No Retention, No Other Musculoskeletal: No: other, neck pain, shoulder pain, arm pain, back pain, hand pain, leg pain, foot pain Skin: No: Rash, Lesions, Jaundice, Bruising, Other Neurological: No: Weakness, Numbness, Incoordination, Change in speech, Confusion, Seizures, Other Allergies: No Known Allergies Objective vital signs Vital Sign Date Time Temp Pulse Resp B/P (MAP) Pulse Ox O2 Delivery O2 Flow Rate FiO2 02/14/25 13:51 98.2 99 17 110/55 (73) 95 98.2 02/14/25 08:00 Room Air* 0 21 Total Intake and Output 02/13/25 02/13/25 02/14/25 15:00 23:00 07:00 Intake Total 600 ml 700 ml Output Total 600 ml 500 ml 900 ml Balance 0 ml 200 ml -900 ml medications Current Medications Medications Dose Ordered Sig/Laine Route Start Time Stop Time Status Last Admin Dose Admin Ondansetron HCl 4 mg Q4HP PRN IV 02/12/25 23:45 Acetaminophen 650 mg Q6HR PO 02/13/25 00:00 02/14/25 12:35 650 MG Furosemide 40 mg DAILY IV 02/14/25 10:00 02/14/25 09:24 40 MG Spironolactone 25 mg DAILY PO 02/14/25 10:00 02/14/25 09:24 25 MG Azithromycin 500 mg DAILY PO 02/14/25 10:00 02/14/25 09:25 500 MG Ceftriaxone Sodium/Dextrose 50 ml @ 50 mls/hr DAILY IV 02/14/25 10:00 02/14/25 09:26 50 MLS/HR Metoprolol Succinate 100 mg DAILY PO 02/13/25 10:00 02/14/25 09:32 100 MG Sacubitril/ Valsartan 1 tab BID PO 02/13/25 10:00 02/14/25 09:24 1 TAB Pantoprazole Sodium 40 mg DAILY IV 02/14/25 10:00 02/14/25 09:24 40 MG Empaglifozin 10 mg DAILY PO 02/13/25 15:30 02/14/25 09:25 10 MG Promethazine HCl 6.25 mg Q6HP PRN PO 02/13/25 15:30 Heparin Sodium/ Dextrose 250 ml @ 28 mls/hr Q8H56M IV 02/14/25 14:15 02/14/25 14:13 28 MLS/HR Examination General: Patient alert and oriented in person, place and time. Patient following commands. HEENT: Normocephalic, atraumatic, moist mucous membranes Respiratory/pulmonary: reduced lung expansion bilaterally, mild crackles on both lung nur. Cardiovascular: Normal heart sounds S1 and S2 with no associated murmurs Abdomen: protuberant, Abdomen nondistended, there is no pain to palpation in any of the abdominal quadrants, no palpable masses. Abdomen obese Extremities: bilateral 2+ pitting edema, worsed on right side has improved. hyperpigmented anterior tibial area on left leg. Peripheral Pulses: 3+ Dorsalis pedis (R). 3+ Dorsalis pedis(L) Skin: No rashes or pruritus, there is no sacral edema present at this time. Neurologic: Alert, oriented x3. No focal deficit. laboratory and microbiology Laboratory Tests 02/14/25 05:30 Test 02/14/25 05:30 Range/Units Serum Glucose 104 74-106 mg/dL Microbiology Date/Time Source Procedure Growth Status 02/12/25 21:26 Blood Blood Culture - Preliminary NO GROWTH AFTER 24 HOURS OF INCUBATION. Resulted Problem List/Assessment/Plan Problem List/Assessment/Plan #Sepsis due to pneumonia gram +/- #Acute hypoxic respiratory failure due to pneumonia / CHF exacerbation #Acute on chronic CHF exacerbation (EF10%) #Acute volume overload #Acute pulmonary embolism -Hx of PE 11/2023 - CT angio showed Occlusive right lower lobar branch pulmonary embolus and multifocal nonocclusive subsegmental branch pulmonary emboli. No definite evidence of right heart strain. Small bilateral pleural effusions and multifocal partially consolidative bilateral lower lobe parenchymal infiltrate - chest x-ray showed Cardiomegaly. Questionable mild interstitial pulmonary edema. 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 Cheng Patient's status and plan discussed with the patient >30min. Patient agrees with the plan Case discussed with Dr. Hargrove Plan discussed with: Patient My Orders My Orders Orders - GIO BLEVINS Procedure Category Date Status Time * Cardiology Consult CONS 02/13/25 Transmitted 17:23 Bipap/Cpap For Sleep RT 02/13/25 Logged Apnea 17:23 Abdomen Limited US 02/13/25 Resulted 19:29 Visit Coding STANDARD RES Billing Provider: KAITLIN WYMAN MD Date of Service if different f: Feb 14, 2025 Common Visit Codes: [id number] INP/OBS CARE(HIGH) GIO BLEVINS RESIDENT Feb 14, 2025 15:29 ALEX ZHENG RESIDENT Feb 14, 2025 17:06
--- NOTE | 2025-02-14 16:27 | DVHINCON2 ---
Date Seen: Feb 14, 2025 Referring Physician MD Masoud Reason for Consultation CHF History of Present Illness This is a 39-year-old man who presented to the emergency room via EMS with a chief complaint of shortness of breath for four days. The patient complains of progressive shortness of breath associated with bilateral lower extremity edema, THOMAS, PND, a nonproductive cough, and like hemoptysis prompting him to seek further medical attention. At time of assessment, he denied any further cardiac symptoms. Reports a history of a nonischemic cardiomyopathy undergoing a cardiac catheterization without catheter based intervention given normal coronaries at [facility] approximately six months ago. The patient reports he has been evaluated by the heart transplant team. He was recommended to continue for GDMT for HFrEF with the patient reporting stopping all of his medications approximately two weeks ago. A 12-lead electrocardiogram revealed a sinus tachycardia rhythm with nonspecific T-wave inversion multiple leads. Serial troponin levels have remained flat in the 70s ng/L. Significant medical history includes HFrEF, hypertension, history of BLE DVT/PE in 12/2023 with Eliquis therapy, and morbid obesity. Past Medical History Past medical history reviewed. No other significant than mentioned above. Past Surgical History Past surgical history reviewed. No other significant than mentioned above. Family History: FH: CHF (congestive heart failure) G8 MOTHER Family History Family history reviewed. Pertinent with mother for CHF. Social History Denies the use of illicit drugs, alcohol, or tobacco use. Allergies: Coded Allergies: NO KNOWN ALLERGIES (Unverified , 02/12/25) Home Meds Reported Medications Apixaban Base (ELIQUIS) 5 Mg Tab, 5 MG PO BID, TAB 02/13/25 Sacubitril-Valsartan (Entresto 24-26 mg) 1 Tab Tab, 1 TAB PO BID, TAB 02/13/25 Spironolactone (Aldactone) 25 Mg Tab, 0.5 TAB PO DAILY, TAB 02/13/25 Furosemide (Lasix) 40 Mg Tab, 40 MG PO DAILY, TAB 02/13/25 Empagliflozin (Jardiance) 25 Mg Tab, 25 MG PO DAILY, TAB 02/13/25 Metoprolol Succinate (Metoprolol Succinate Er) 50 Mg Tab, 100 MG PO DAILY, TAB 02/13/25 Hydroxyzine Hcl (Hydroxyzine Hcl) 25 Mg Tab, 1 TAB PO HS 02/13/25 Home Meds Home medications reviewed. Current Medications Current Medications Medications (Trade) Dose Ordered Sig/Laine Route PRN Reason Start Time Stop Time Status Last Admin Furosemide (Lasix Injection) 40 mg DAILY IV 02/14/25 10:00 02/14/25 09:24 Spironolactone (Aldactone) 25 mg DAILY PO 02/14/25 10:00 02/14/25 09:24 Azithromycin (Zithromax Tablet) 500 mg DAILY PO 02/14/25 10:00 02/14/25 09:25 Ceftriaxone Sodium/Dextrose 50 ml @ 50 mls/hr DAILY IV 02/14/25 10:00 02/14/25 09:26 Pantoprazole Sodium (Protonix) 40 mg DAILY IV 02/14/25 10:00 02/14/25 09:24 Heparin Sodium/ Dextrose 250 ml @ 24 mls/hr [id number] IV 02/13/25 18:45 02/14/25 01:07 DC 02/13/25 18:45 Heparin Sodium/ Dextrose 250 ml @ 26 mls/hr Q9H37M IV 02/14/25 01:15 02/14/25 14:07 DC 02/14/25 01:41 Heparin Sodium/ Dextrose 250 ml @ 28 mls/hr Q8H56M IV 02/14/25 14:15 02/14/25 14:13 Review of Systems Constitutional: No symptom reported Ears, Nose, & Throat: No symptom reported Eyes: No symptom reported Neurological: No symptoms reported Pulmonary/Respiratory: SOB, THOMAS, PND, hemoptysis Cardiovascular: BLE edema Gastrointestinal: No symptom reported Genitourinary: No symptom reported Musculoskeletal: No symptom reported Skin: No symptom reported Psychiatric: No symptom reported Endocrine: No symptom reported Hemotologic/Lymphatic: No symptom reported Vital Signs Vital Signs Date Time Temp Pulse Resp B/P (MAP) Pulse Ox O2 Delivery O2 Flow Rate FiO2 02/14/25 13:51 98.2 99 17 110/55 (73) 95 98.2 02/14/25 08:00 Room Air* 0 21 Physical Exam General Appearance: Cooperative. Well developed. Morbidly obese. In no acute distress Head Exam: Normal inspection Neck Exam: Normal inspection. Non-tender. Normal alignment Pulmonary/Respiratory: Chest non-tender. Clear bilateral breath sounds Cardiovascular/Chest: Regular rate and rhythm. S1, S2. Sinus rhythm with nonspecific T-wave inversion to multiple leads. No murmurs. No JVD. Peripheral Pulses: 2+ Radial (R). 2+ Radial (L). 2+ Pedal (R). 2+ Pedal (L) Abdominal Exam: Normal bowel sounds Ankle Exam: Negative ankle edema Lower extremities: Negative lower extremity edema Neuro/Mental Status: A&O x4. Coherent Thoughts/Psych: Normal thought pattern. Appropriate mood and affect. Somnolent Appearance: In no acute distress Skin Exam: Normal inspection. Normal color. Warm. Dry Labs/Diagnostic Data Labs Test 02/14/25 13:19 02/14/25 05:30 02/13/25 08:26 02/13/25 03:40 Range/Units Prothrombin Time 12.0 H 9.3-11.8 sec Prothrombin Time INR 1.15 0.9-1.15 Activated Partial Thromboplast Time 48.0 H 24.5-34.5 SEC White Blood Count 17.7 H 4.4-10.8 10^3/uL Red Blood Count 4.90 4.5-5.90 10^6/uL Hemoglobin 13.5 13.5-17.5 g/dL Hematocrit 41.6 41.0-53.0 % Mean Corpuscular Volume 84.9 80.0-100.0 fL Mean Corpuscular Hemoglobin 27.5 L 28.0-32.0 pg Mean Corpuscular Hemoglobin Concent 32.4 32.0-36.0 g/dL Red Cell Distribution Width 14.5 H 11.8-14.3 % Platelet Count 329 140-450 10^3/uL Mean Platelet Volume 10.2 6.9-10.8 fL Neutrophils (%) (Auto) 69.3 37.0-80.0 % Lymphocytes (%) (Auto) 15.6 10.0-50.0 % Monocytes (%) (Auto) 13.6 H 0.0-12.0 % Eosinophils (%) (Auto) 1.0 0.0-7.0 % Basophils (%) (Auto) 0.5 0.0-2.0 % Neutrophils # (Auto) 12.2 H 1.6-8.6 10 ^3/uL Lymphocytes # (Auto) 2.8 0.4-5.4 10 ^3/uL Monocytes # (Auto) 2.4 H 0-1.3 10 ^3/uL Eosinophils # (Auto) 0.2 0-0.8 10 ^3/uL Basophils # (Auto) 0.1 0-0.2 10 ^3/uL Nucleated Red Blood Cells 0.0 % Sodium Level 136 136-145 mmol/L Potassium Level 4.2 3.5-5.1 mmol/L Chloride Level 101 98-107 mmol/L Carbon Dioxide Level 24 20-31 mmol/L Anion Gap 11 5-15 Blood Urea Nitrogen 14 9-23 mg/dL Creatinine 1.15 0.700-1.30 mg/dL Glomerular Filtration Rate Calc 83 >90 mL/min BUN/Creatinine Ratio 12.2 10.0-20.0 Serum Glucose 104 74-106 mg/dL Calcium Level 8.8 8.7-10.4 mg/dL Triglycerides Level 133 < 150 mg/dL Cholesterol Level 137 < 200 mg/dL LDL Cholesterol 85 < 100 mg/dL HDL Cholesterol 31 L 40-59 mg/dL Hemoglobin A1c 5.8 H <5.7 % A1C Total Bilirubin 2.1 H 0.2-1.0 mg/dL Aspartate Amino Transferase (AST) 53 H 13-40 U/L Alanine Aminotransferase (ALT) 68 H 7-40 U/L Alkaline Phosphatase 100 46-116 U/L Total Protein 7.2 5.7-8.2 g/dL Albumin 3.8 3.2-4.8 g/dL Thyroid Stimulating Hormone (TSH) 1.26 0.55-4.78 uIU/mL Influenza Type A Antigen Negative Negative Influenza Type B Antigen Negative Negative SARS-CoV-2 Antigen (Rapid) Negative NEGATIVE Test 02/12/25 23:40 02/12/25 22:48 02/12/25 22:34 02/12/25 20:40 Range/Units Troponin I High Sensitivity 70 *H </=54 ng/L Urine Color Yellow Yellow Urine Clarity Clear Clear Urine pH 6.0 5.0-9.0 Urine Specific Slater 1.012 1.001-1.035 Urine Protein 2+ H Negative Urine Ketones Negative Negative Urine Blood 2+ H Negative /uL Urine Nitrite Negative Negative Urine Bilirubin Negative Negative Urine Urobilinogen 2 H Negative mg/dL Urine Leukocyte Esterase Negative Negative /uL Urine RBC 1 0 - 3 /hpf Urine Microscopic WBC < 1 0-3 /HPF Urine Squamous Epithelial Cells Few <5 /hpf Urine Bacteria None Seen /hpf Urine Granular Casts Few 0 /lpf Urine Glucose 4+ H Normal mg/dL Urine Opiates Screen Neg NEGATIVE Urine Fentanyl Screen Neg NEGATIVE Urine Barbiturates Screen Neg NEGATIVE Urine Phencyclidine Screen Neg NEGATIVE Urine Amphetamines Screen Neg NEGATIVE Urine Benzodiazepines Screen Neg NEGATIVE Urine Cocaine Screen Neg NEGATIVE Urine Cannabinoids Screen Neg NEGATIVE Lactic Acid Level 1.6 0.4-2.0 mmol/L Differential Total Cells Counted 100.0 100 Neutrophils % (Manual) 77 37.0-80.0 Band Neutrophils % (Manual) 2 Lymphocytes % (Manual) 10 10.0-50.0 Monocytes % (Manual) 11 0-12 Eosinophils % (Manual) 0 0-7 Basophils % (Manual) 0 0.0-2.0 Metamyelocytes % (manual) 0 Myelocytes % (Manual) 0 Promyelocytes % (Manual) 0 Blast Cells % (Manual) 0 Reactive Lymphocytes 0 Platelet Estimate Adequate Large Platelets Few Anisocytosis (manual) Slight Magnesium Level 1.9 1.6-2.6 mg/dL B-Type Natriuretic Peptide 3033.48 0-100 pg/mL Microbiology Date/Time Source Procedure Growth Status 02/12/25 21:26 Blood Blood Culture - Preliminary NO GROWTH AFTER 24 HOURS OF INCUBATION. Resulted Assessment Sepsis with pneumonia Acute on chronic decompensated HFrEF, NYHA Class III Nonischemic/dilated cardiomyopathy Acute pulmonary embolism NSTEMI, likely type 2 secondary to above History of PE/bilateral lower extremity DVT in 12/2023 (on Eliquis) Hypertension Dyslipidemia Prediabetes, newly diagnosed Medical noncompliance Morbid obesity Plan/Recommendation (Dr. Zamudio) The patient underwent a transthoracic echocardiogram revealing a LVEF of 10% with dilated cardiomyopathy of all chambers and normal valves. Follows up in the outpatient setting at [facility] where he underwent a recent cardiac catheterization without catheter based intervention given normal coronaries approximately six months ago. Reports being evaluated by the heart transplant team. He was advised to continue GDMT for HFrEF. Given acute PE, continue heparin drip per pharmacy protocol and transition to Eliquis HS with initial dose at 10mg BID x 7 days with the remaining at 5 mg BID. There are no invasive cardiac procedures suggested at this time. Follow-up with primary manager bench as scheduled. Strongly advised on medical compliance as this could hinder his options as a candidate in the transplant list. Kindly call if in need of further recommendations. Signing off at this time. Thank you for allowing us to participate in this patient's care. Critical care time: 40 min. This medical document was created using an electronic medical record system with voice recognition software and computerized dictation system. Although this document has been carefully reviewed, there might still be some phonetic and typographical errors. Occasional wrong-word or ``sound-alike substitutions may have occurred due to the inherent limitations of voice recognition software. These areas are purely typographical due to imperfections of the software programs and do not reflect any compromise in the patient's medical care. Please read the chart carefully and recognize, using context, where these substitutions have occurred. Plan discussed with: Patient, Other NYHA Physical activity limitations: Class3(Marked) ordinary (activity causes symtoms) Date of Service: Feb 14, 2025 Billing Provider: HOUSTON CHAUDHARY Cardiology Common Codes: [id number] CARE 30-74 MIN HOUSTON CHAUDHARY Feb 14, 2025 16:27
[2025-02-14] MEDS: APIXABAN 5 MG TAB PO SCH (21:43)
--- NOTE | 2025-02-14 23:42 | DVHINCON2 ---
Date Seen: Feb 14, 2025 Referring Physician MD Masoud Reason for Consultation CHF History of Present Illness This is a 39-year-old male with a PMH of HFrEF, hypertension, history of BLE DVT/PE in 12/2023 with Eliquis therapy, and morbid obesity brought in by EMS with a complaint of shortness of breath for four days. The patient complains of progressive shortness of breath associated with bilateral lower extremity edema, THOMAS, PND, a nonproductive cough, and like hemoptysis prompting him to seek further medical attention. At time of assessment, he denied any further cardiac symptoms. Reports a history of a nonischemic cardiomyopathy undergoing a cardiac catheterization without catheter based intervention given normal coronaries at [facility] approximately six months ago. The patient reports he has been evaluated by the heart transplant team. He was recommended to continue for GDMT for HFrEF with the patient reporting stopping all of his medications approximately two weeks ago. A 12-lead electrocardiogram revealed a sinus tachycardia rhythm with nonspecific T-wave inversion multiple leads. Serial troponin levels have remained flat in the 70s ng/L. Past Medical History Past medical history reviewed. No other significant than mentioned above. Past Surgical History Past surgical history reviewed. No other significant than mentioned above. Family History: FH: CHF (congestive heart failure) G8 MOTHER Allergies: Coded Allergies: NO KNOWN ALLERGIES (Unverified , 02/12/25) Home Meds Reported Medications Apixaban Base (ELIQUIS) 5 Mg Tab, 5 MG PO BID, TAB 02/13/25 Sacubitril-Valsartan (Entresto 24-26 mg) 1 Tab Tab, 1 TAB PO BID, TAB 02/13/25 Spironolactone (Aldactone) 25 Mg Tab, 0.5 TAB PO DAILY, TAB 02/13/25 Furosemide (Lasix) 40 Mg Tab, 40 MG PO DAILY, TAB 02/13/25 Empagliflozin (Jardiance) 25 Mg Tab, 25 MG PO DAILY, TAB 02/13/25 Metoprolol Succinate (Metoprolol Succinate Er) 50 Mg Tab, 100 MG PO DAILY, TAB 02/13/25 Hydroxyzine Hcl (Hydroxyzine Hcl) 25 Mg Tab, 1 TAB PO HS 02/13/25 Current Medications Current Medications Medications (Trade) Dose Ordered Sig/Laine Route PRN Reason Start Time Stop Time Status Last Admin Furosemide (Lasix Injection) 40 mg DAILY IV 02/14/25 10:00 02/14/25 15:56 DC 02/14/25 09:24 Spironolactone (Aldactone) 25 mg DAILY PO 02/14/25 10:00 02/14/25 09:24 Azithromycin (Zithromax Tablet) 500 mg DAILY PO 02/14/25 10:00 02/14/25 09:25 Ceftriaxone Sodium/Dextrose 50 ml @ 50 mls/hr DAILY IV 02/14/25 10:00 02/14/25 09:26 Pantoprazole Sodium (Protonix) 40 mg DAILY IV 02/14/25 10:00 02/14/25 09:24 Heparin Sodium/ Dextrose 250 ml @ 26 mls/hr Q9H37M IV 02/14/25 01:15 02/14/25 14:07 DC 02/14/25 01:41 Heparin Sodium/ Dextrose 250 ml @ 28 mls/hr Q8H56M IV 02/14/25 14:15 02/14/25 15:56 DC 02/14/25 14:13 Furosemide (Lasix Injection) 40 mg BIDD IV 02/14/25 18:00 02/14/25 17:33 Apixaban (Eliquis) 10 mg BID PO 02/14/25 22:00 02/21/25 21:59 02/14/25 21:43 Apixaban (Eliquis) 5 mg BID PO 02/22/25 10:00 Heparin Sodium/ Dextrose 250 ml @ 2,800 mls/hr Q6M IV 02/14/25 16:15 02/14/25 16:28 NV 02/14/25 16:23 Heparin Sodium/ Dextrose 250 ml @ 28 mls/hr Q8H56M IV 02/14/25 16:30 02/14/25 22:00 DC 02/14/25 16:30 Review of Systems Constitutional: No symptom reported Ears, Nose, & Throat: No symptom reported Eyes: No symptom reported Neurological: No symptoms reported Pulmonary/Respiratory: SOB, THOMAS, PND, hemoptysis Cardiovascular: BLE edema Gastrointestinal: No symptom reported Genitourinary: No symptom reported Musculoskeletal: No symptom reported Skin: No symptom reported Psychiatric: No symptom reported Endocrine: No symptom reported Hemotologic/Lymphatic: No symptom reported Vital Signs Vital Signs Date Time Temp Pulse Resp B/P (MAP) Pulse Ox O2 Delivery O2 Flow Rate FiO2 02/14/25 21:00 98.6 109 20 104/62 (76) 97 98.6 02/14/25 20:00 Room Air* 0 21 Physical Exam GENERAL: Alert and oriented x 3. No acute distress. Morbidly obese. EYES: PERRL, EOMI. Anicteric. HENT: Moist mucous membranes. LUNGS: Clear to auscultation bilaterally. CARDIOVASCULAR: Regular rate and rhythm. ABDOMEN: Soft, non-tender and non-distended. EXTREMITIES: No edema. NEUROLOGIC: No focal neurological deficits. SKIN: Warm, dry. Labs/Diagnostic Data Labs Test 02/14/25 13:19 02/14/25 05:30 02/13/25 08:26 02/13/25 03:40 Range/Units Prothrombin Time 12.0 H 9.3-11.8 sec Prothrombin Time INR 1.15 0.9-1.15 Activated Partial Thromboplast Time 48.0 H 24.5-34.5 SEC White Blood Count 17.7 H 4.4-10.8 10^3/uL Red Blood Count 4.90 4.5-5.90 10^6/uL Hemoglobin 13.5 13.5-17.5 g/dL Hematocrit 41.6 41.0-53.0 % Mean Corpuscular Volume 84.9 80.0-100.0 fL Mean Corpuscular Hemoglobin 27.5 L 28.0-32.0 pg Mean Corpuscular Hemoglobin Concent 32.4 32.0-36.0 g/dL Red Cell Distribution Width 14.5 H 11.8-14.3 % Platelet Count 329 140-450 10^3/uL Mean Platelet Volume 10.2 6.9-10.8 fL Neutrophils (%) (Auto) 69.3 37.0-80.0 % Lymphocytes (%) (Auto) 15.6 10.0-50.0 % Monocytes (%) (Auto) 13.6 H 0.0-12.0 % Eosinophils (%) (Auto) 1.0 0.0-7.0 % Basophils (%) (Auto) 0.5 0.0-2.0 % Neutrophils # (Auto) 12.2 H 1.6-8.6 10 ^3/uL Lymphocytes # (Auto) 2.8 0.4-5.4 10 ^3/uL Monocytes # (Auto) 2.4 H 0-1.3 10 ^3/uL Eosinophils # (Auto) 0.2 0-0.8 10 ^3/uL Basophils # (Auto) 0.1 0-0.2 10 ^3/uL Nucleated Red Blood Cells 0.0 % Sodium Level 136 136-145 mmol/L Potassium Level 4.2 3.5-5.1 mmol/L Chloride Level 101 98-107 mmol/L Carbon Dioxide Level 24 20-31 mmol/L Anion Gap 11 5-15 Blood Urea Nitrogen 14 9-23 mg/dL Creatinine 1.15 0.700-1.30 mg/dL Glomerular Filtration Rate Calc 83 >90 mL/min BUN/Creatinine Ratio 12.2 10.0-20.0 Serum Glucose 104 74-106 mg/dL Calcium Level 8.8 8.7-10.4 mg/dL Triglycerides Level 133 < 150 mg/dL Cholesterol Level 137 < 200 mg/dL LDL Cholesterol 85 < 100 mg/dL HDL Cholesterol 31 L 40-59 mg/dL Hemoglobin A1c 5.8 H <5.7 % A1C Total Bilirubin 2.1 H 0.2-1.0 mg/dL Aspartate Amino Transferase (AST) 53 H 13-40 U/L Alanine Aminotransferase (ALT) 68 H 7-40 U/L Alkaline Phosphatase 100 46-116 U/L Total Protein 7.2 5.7-8.2 g/dL Albumin 3.8 3.2-4.8 g/dL Thyroid Stimulating Hormone (TSH) 1.26 0.55-4.78 uIU/mL Influenza Type A Antigen Negative Negative Influenza Type B Antigen Negative Negative SARS-CoV-2 Antigen (Rapid) Negative NEGATIVE Test 02/12/25 23:40 02/12/25 22:48 02/12/25 22:34 02/12/25 20:40 Range/Units Troponin I High Sensitivity 70 *H </=54 ng/L Urine Color Yellow Yellow Urine Clarity Clear Clear Urine pH 6.0 5.0-9.0 Urine Specific [place] 1.012 1.001-1.035 Urine Protein 2+ H Negative Urine Ketones Negative Negative Urine Blood 2+ H Negative /uL Urine Nitrite Negative Negative Urine Bilirubin Negative Negative Urine Urobilinogen 2 H Negative mg/dL Urine Leukocyte Esterase Negative Negative /uL Urine RBC 1 0 - 3 /hpf Urine Microscopic WBC < 1 0-3 /HPF Urine Squamous Epithelial Cells Few <5 /hpf Urine Bacteria None Seen /hpf Urine Granular Casts Few 0 /lpf Urine Glucose 4+ H Normal mg/dL Urine Opiates Screen Neg NEGATIVE Urine Fentanyl Screen Neg NEGATIVE Urine Barbiturates Screen Neg NEGATIVE Urine Phencyclidine Screen Neg NEGATIVE Urine Amphetamines Screen Neg NEGATIVE Urine Benzodiazepines Screen Neg NEGATIVE Urine Cocaine Screen Neg NEGATIVE Urine Cannabinoids Screen Neg NEGATIVE Lactic Acid Level 1.6 0.4-2.0 mmol/L Differential Total Cells Counted 100.0 100 Neutrophils % (Manual) 77 37.0-80.0 Band Neutrophils % (Manual) 2 Lymphocytes % (Manual) 10 10.0-50.0 Monocytes % (Manual) 11 0-12 Eosinophils % (Manual) 0 0-7 Basophils % (Manual) 0 0.0-2.0 Metamyelocytes % (manual) 0 Myelocytes % (Manual) 0 Promyelocytes % (Manual) 0 Blast Cells % (Manual) 0 Reactive Lymphocytes 0 Platelet Estimate Adequate Large Platelets Few Anisocytosis (manual) Slight Magnesium Level 1.9 1.6-2.6 mg/dL B-Type Natriuretic Peptide 3033.48 0-100 pg/mL Microbiology Date/Time Source Procedure Growth Status 02/12/25 21:26 Blood Blood Culture - Preliminary NO GROWTH AFTER 48 HOURS OF INCUBATION. Resulted Assessment Sepsis with pneumonia. Acute on chronic decompensated HFrEF, NYHA Class III. Nonischemic/dilated cardiomyopathy. Acute pulmonary embolism. NSTEMI, likely type 2 secondary to above. History of PE/bilateral lower extremity DVT in 12/2023 (on Eliquis). Hypertension. Dyslipidemia. Prediabetes, newly diagnosed. Medical noncompliance. Morbid obesity. Plan/Recommendation I agree with your ongoing assessment and care of plan. Patient has been seen by Ana Mosquera NP on my behalf. We have discussed the plan with the patient. The patient underwent a transthoracic echocardiogram revealing a LVEF of 10% with dilated cardiomyopathy of all chambers and normal valves. Follows up in the outpatient setting at [facility] where he underwent a recent cardiac catheterization without catheter based intervention given normal coronaries approximately six months ago. Reports being evaluated by the heart transplant team. He was advised to continue GDMT for HFrEF. Given acute PE, continue heparin drip per pharmacy protocol and transition to Eliquis HS with initial dose at 10mg BID x 7 days with the remaining at 5 mg BID. There are no invasive cardiac procedures suggested at this time. 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 Strongly advised on medical compliance as this could hinder his options as a candidate in the transplant list. Additional plan as per the hospital course. Plan discussed with: Patient NYHA Physical activity limitations: Class3(Marked) ordinary Date of Service: Feb 14, 2025 Billing Provider: ANA SALAZAR MD Cardiology Common Codes: 83939-[id number] INP/OBS CARE (High), [id number] CARE 30-74 MIN ANA SALAZAR MD Feb 14, 2025 23:42
[2025-02-15 01:00] VITALS: BP 117/68; PULSE 106; RESP 16; TEMP 98.6; O2SAT 96
[2025-02-15 05:00] VITALS: BP 125/66; PULSE 108; RESP 20; TEMP 98.6; O2SAT 94
[2025-02-15 06:58] LABS: Albumin 3.6 g/dL (3.2-4.8); Anion Gap 10 (5-15); BUN/Creatinine Ratio 15.2 (10.0-20.0); Blood Urea Nitrogen 16 mg/dL (9-23); Carbon Dioxide 25 mmol/L (20-31); Chloride 100 mmol/L (98-107); Glucose 95 mg/dL (74-106); Potassium 4.2 mmol/L (3.5-5.1); Total Protein 7.0 g/dL (5.7-8.2)
[2025-02-15 07:07] LABS: Alanine Aminotransferase 54 U/L (7-40); Alkaline Phosphatase 134 U/L (46-116); Bilirubin, Total 1.1 mg/dL (0.2-1.0); Calcium 8.6 mg/dL (8.7-10.4); Sodium 135 mmol/L (136-145)
[2025-02-15 08:00] VITALS: PULSE 106
[2025-02-15 09:00] VITALS: BP 116/74; PULSE 106; RESP 20; TEMP 98.7; O2SAT 94
[2025-02-15 09:47] LABS: Hematocrit 38.7 % (41.0-53.0); Hemoglobin 12.8 g/dL (13.5-17.5); Mean Corpuscular Hemoglobin 28.0 pg (28.0-32.0); Mean Corpuscular Volume 84.6 fL (80.0-100.0); Nucleated Red Blood Cells % 0.0 %
--- NOTE | 2025-02-15 10:50 | DVHDSRES ---
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0) Mean Corpuscular Hemoglobin Concent 33.1 g/dL (32.0-36.0) Red Cell Distribution Width 14.5 % (11.8-14.3) Platelet Count 345 10^3/uL (140-450) Mean Platelet Volume 10.2 fL (6.9-10.8) Neutrophils (%) (Auto) 66.7 % (37.0-80.0) Lymphocytes (%) (Auto) 17.8 % (10.0-50.0) Monocytes (%) (Auto) 13.1 % (0.0-12.0) Eosinophils (%) (Auto) 1.8 % (0.0-7.0) Basophils (%) (Auto) 0.6 % (0.0-2.0) Neutrophils # (Auto) 8.6 10 ^3/uL (1.6-8.6) Lymphocytes # (Auto) 2.3 10 ^3/uL (0.4-5.4) Monocytes # (Auto) 1.7 10 ^3/uL (0-1.3) Eosinophils # (Auto) 0.2 10 ^3/uL (0-0.8) Basophils # (Auto) 0.1 10 ^3/uL (0-0.2) Nucleated Red Blood Cells 0.0 % Sodium Level 135 mmol/L (136-145) Potassium Level 4.2 mmol/L (3.5-5.1) Chloride Level 100 mmol/L (98-107) Carbon Dioxide Level 25 mmol/L (20-31) Anion Gap 10 (5-15) Blood Urea Nitrogen 16 mg/dL (9-23) Creatinine 1.05 mg/dL (0.700-1.30) Glomerular Filtration Rate Calc 92 mL/min (>90) BUN/Creatinine Ratio 15.2 (10.0-20.0) Serum Glucose 95 mg/dL (74-106) Calcium Level 8.6 mg/dL (8.7-10.4) Total Bilirubin 1.1 mg/dL (0.2-1.0) Aspartate Amino Transferase (AST) 46 U/L (13-40) Alanine Aminotransferase (ALT) 54 U/L (7-40) Alkaline Phosphatase 134 U/L (46-116) Total Protein 7.0 g/dL (5.7-8.2) Albumin 3.6 g/dL (3.2-4.8) Prothrombin Time 12.0 sec (9.3-11.8) Prothrombin Time INR 1.15 (0.9-1.15) Activated Partial Thromboplast Time 48.0 SEC (24.5-34.5) Triglycerides Level 133 mg/dL (< 150) Cholesterol Level 137 mg/dL (< 200) LDL Cholesterol 85 mg/dL (< 100) HDL Cholesterol 31 mg/dL (40-59) Hemoglobin A1c 5.8 % A1C (<5.7) Thyroid Stimulating Hormone (TSH) 1.26 uIU/mL (0.55-4.78) Test 02/13/25 03:40 02/12/25 23:40 02/12/25 22:48 02/12/25 22:34 Influenza Type A Antigen Negative (Negative) Influenza Type B Antigen Negative (Negative) SARS-CoV-2 Antigen (Rapid) Negative (NEGATIVE) Troponin I High Sensitivity 70 ng/L (</=54) Urine Color Yellow (Yellow) Urine Clarity Clear (Clear) Urine pH 6.0 (5.0-9.0) Urine Specific [address] 1.012 (1.001-1.035) Urine Protein 2+ (Negative) Urine Ketones Negative (Negative) Urine Blood 2+ /uL (Negative) Urine Nitrite Negative (Negative) Urine Bilirubin Negative (Negative) Urine Urobilinogen 2 mg/dL (Negative) Urine Leukocyte Esterase Negative /uL (Negative) Urine RBC 1 /hpf (0 - 3) Urine Microscopic WBC < 1 /HPF (0-3) Urine Squamous Epithelial Cells Few /hpf (<5) Urine Bacteria /hpf (None Seen) Urine Granular Casts Few /lpf (0) Urine Glucose 4+ mg/dL (Normal) Urine Opiates Screen Neg (NEGATIVE) Urine Fentanyl Screen Neg (NEGATIVE) Urine Barbiturates Screen Neg (NEGATIVE) Urine Phencyclidine Screen Neg (NEGATIVE) Urine Amphetamines Screen Neg (NEGATIVE) Urine Benzodiazepines Screen Neg (NEGATIVE) Urine Cocaine Screen Neg (NEGATIVE) Urine Cannabinoids Screen Neg (NEGATIVE) Lactic Acid Level 1.6 mmol/L (0.4-2.0) Test 02/12/25 20:40 Differential Total Cells Counted 100.0 (100) Neutrophils % (Manual) 77 (37.0-80.0) Band Neutrophils % (Manual) 2 Lymphocytes % (Manual) 10 (10.0-50.0) Monocytes % (Manual) 11 (0-12) Eosinophils % (Manual) 0 (0-7) Basophils % (Manual) 0 (0.0-2.0) Metamyelocytes % (manual) 0 Myelocytes % (Manual) 0 Promyelocytes % (Manual) 0 Blast Cells % (Manual) 0 Reactive Lymphocytes 0 Platelet Estimate Adequate Large Platelets Few Anisocytosis (manual) Slight Magnesium Level 1.9 mg/dL (1.6-2.6) B-Type Natriuretic Peptide 3033.48 pg/mL (0-100) Other Laboratory Tests 02/15/25 06:00 Brief Hx & Hospital Course: PHI: Salvatore Huntley is a 39-year-old male, with past medical history of HFrEF (EF16%), hyperlipidemia, chronic PE, DVT (on Eliquis) and hypertension. The patient came to the ED with chief complaint of 4 days of bilateral leg swelling (worse on the right side), dry cough, shortness of breaths at rest, palpitations and hemoptysis. The patient denies any fever, recent long travel, chills, nausea, vomiting. His symptoms did worsen, this prompted his visit to the ED. On further questioning, the patient states that he has not been taking Eliquis for the last 11 days due to recently his pharmacy changes. The patient also states that his current ejection fraction is 16%, and he has been seen in [facility]. In the ED the patient was examined. on initial assessment CT- angio showed:pulmonary embolism with Occlusive right lower lobar branch pulmonary embolus and multifocal nonocclusive subsegmental branch pulmonary emboli. No definite evidence of right heart strain. Small bilateral pleural effusions and multifocal partially consolidative bilateral lower lobe parenchymal infiltrate.The patient was admitted for further assessment and management. PMHx: HFrEF (16%), hyperlipidemia, PE, DVT, hypertension PSHx: Denies Family history: reviewed, noncontributory Social history: denies smoking, drinking, drug use but states that he is exposed to passive smoking from coworkers Home medication: Eliquis, Lasix, metoprolol, Jardiance, Entresto, Allergic history: denies Hospital course: During his admission in [facility] the patient was seen and evaluated at bedside. The patient's VS, labs and chart were reviewed. The patient was admitted with shortness for breath and general weakness. CT-Angio showed PE, the patient was started on heparin drip. Chest xray showed pneumonia, the patient received IV antibiotics (Ceftriaxone, azitromycin) IV fluids, GDMT therapy for CHF. Echo showed EF 10% with dilated cardiomyopathy. RSVP 30mmhg. Cardiology consult was consulted, they recommended to transition patient from heparin drip to Eliquis 10mg po bid for 7 days then Eliquis 5mg po bid. and F/U with cardiology at [facility] for left hearth cath. Due to clinical improvement, the patient is being discharge today with oral antibiotics (Azitromicyn) and Eliquist Eliquis 10mg po bid for 7 days then Eliquis 5mg po bid. The patient will follow up with F/U with cardiology in 1 week, F/U with pcp in one week and F/U d/c clinic in 72hrs. All patient's question were answered satisfactorily, warning signs and when to return to the ED recommendations were given, patient agreed to understanding. ROS: Constitutional: General weakness. No: Fever, Chills, Sweats, Malaise, Other Eyes: No: Pain, Vision change, Conjunctivae inflammation, Eyelid inflammation, Other, Redness ENT: No: Ear pain, Ear discharge, Nose pain, Nose discharge, Nose congestion, Mouth pain, Mouth swelling, Throat pain, Throat swelling, Other Respiratory: mild Cough, No Shortness of breath, no more hemoptysis; No: Dry, SOB with excertion, Wheezing, Pleuritic Pain, Sputum,or other. Cardiovascular: No: Chest Pain, Palpitations, Orthopnea, Paroxysmal Noc. Dyspnea, Edema, Lt Headedness, Other Gastrointestinal: No: Nausea, Vomiting, Abdominal Pain, Diarrhea, Constipation, Melena, Hematochezia, Other Genitourinary: No Dysuria, No Frequency, No Incontinence, No Hematuria, No Retention, No Other Musculoskeletal: No: other, neck pain, shoulder pain, arm pain, back pain, hand pain, leg pain, foot pain Skin: No: Rash, Lesions, Jaundice, Bruising, Other Neurological: No: Weakness, Numbness, Incoordination, Change in speech, Confusion, Seizures, Other Allergies: No Known Allergies Physical Exam: General: Patient alert and oriented in person, place and time. Patient following commands. HEENT: Normocephalic, atraumatic, moist mucous membranes Respiratory/pulmonary: reduced lung expansion bilaterally, mild crackles on both lung nur. Cardiovascular: Normal heart sounds S1 and S2 with no associated murmurs Abdomen: protuberant, Abdomen nondistended, there is no pain to palpation in any of the abdominal quadrants, no palpable masses. Abdomen obese Extremities: bilateral 2+ pitting edema, worsed on right side has improved. There is a hyperpigmented anterior tibial area on left leg. Peripheral Pulses: 3+ Dorsalis pedis (R). 3+ Dorsalis pedis(L) Skin: No rashes or pruritus, there is no sacral edema present at this time. Neurologic: Alert, oriented x3. No focal deficit. Plan: D/C Home, no needs Eliquis 10mg po BID x 7 days, then 5 BID daily Azithromicyn 500mg po daily for 5 days Phenergan 12.5ml po Q8hr prn for cough F/U with cardiology in 1 week F/U with pcp in one week F/U d/c clinic in 72hrs. Consults/Reason for consult Cardiology: ECHO 10% Operations or Procedures PROCEDURE(s): CXRP - CHEST PORTABLE REASON: sob ORDER NUMBER(s): [id number], ACCESSION NUMBER(s): [id number] CHEST RADIOGRAPH INDICATION: sob TECHNIQUE: Single frontal view of the chest was obtained COMPARISON: None FINDINGS: Lines and Tubes: None Lungs: Questionable mild interstitial pulmonary edema. Pleura: No effusion. No pneumothorax. Cardiomediastinal contours: Cardiomegaly. Bones: Unremarkable IMPRESSION: 1. Cardiomegaly. 2. Questionable mild interstitial pulmonary edema. EDURE(s): BLDVT - BiLat Lower DVT REASON: r/o dvt ORDER NUMBER(s): [id number], ACCESSION NUMBER(s): [id number] Bilateral lower extremity venous duplex CLINICAL HISTORY: r/o dvt COMPARISON: None TECHNIQUE: Duplex Doppler evaluation of the deep venous systems of both lower extremities from the common femoral veins to the popliteal veins including color Doppler and spectral/pulsed waveform analysis was performed. FINDINGS: RIGHT SIDE: The common femoral vein demonstrates appropriate compressibility and waveform variability. There is compressibility/patency of the great saphenous vein at the proximal thigh. The femoral vein demonstrates appropriate compressibility and waveform variability. The deep femoral vein demonstrates appropriate compressibility and waveform variability. The popliteal vein demonstrates appropriate compressibility and waveform variability. There is normal compressibility at the tibioperoneal trunk. LEFT SIDE: The common femoral vein demonstrates appropriate compressibility and waveform variability. There is compressibility/patency of the great saphenous vein at the proximal thigh. The femoral vein demonstrates appropriate compressibility and waveform variability. The deep femoral vein demonstrates appropriate compressibility and waveform variability. The popliteal vein demonstrates appropriate compressibility and waveform variability. There is normal compressibility at the tibioperoneal trunk. IMPRESSION: 1. No right or left femoropopliteal venous thrombosis. ATED BY: EDY RODRÍGUEZ MD DICTATED DATE/TIME: 02/13/25 0031 PROCEDURE(s): CTACH - CT ANGIO CHEST CONTRAST REASON: PE? ORDER NUMBER(s): [id number], ACCESSION NUMBER(s): [id number] CTA Chest with intravenous contrast INDICATION: PE COMPARISON: XY CHEST PORTABLE on DOS: 02/12/25 TECHNIQUE: Multidetector spiral CTA of the chest was performed of the chest with intravenous contrast. PULMONARY ANGIOGRAPHY PROTOCOL was utilized using a bolus- tracking technique centered on the main pulmonary artery. Axial, coronal and sagittal multiplanar and MIP reformats were performed. Radiation Dose : 1. Chest: CTDI volume is 29.2 mGy. Dose-length product is 1044.58 mGy*cm The dose indicators for CT are the volume Computed Tomography (CT) Dose Index (CTDIvol) and the Dose Length Product (DLP), and are measured in units of mGy and mGy-cm, respectively. These indicators are not patient dose, but values generated from the CT scanner acquisition factors. The report includes radiation exposure data for exposures received during this examination. FINDINGS: Pulmonary artery: Occlusive filling defect within the right lower lobe branch of the pulmonary artery consistent with pulmonary embolus. Additional smaller nonocclusive filling defects noted within subsegmental branches of all lobes. No definite evidence of right heart strain. Lower neck: Normal thyroid. Lungs: Small bilateral pleural effusions, [id number]. Multifocal partially consolidative appearing bilateral lower lobe parenchymal infiltrate. Heart/Vascular Structures: The heart is enlarged. No evidence of pericardial effusion. Lymph Nodes: No adenopathy Musculoskeletal: No acute osseous abnormality. Soft tissues: Normal. Upper abdomen: Limited portions of the upper abdomen are unremarkable. IMPRESSION: 1. Occlusive right lower lobar branch pulmonary embolus and multifocal nonocclusive subsegmental branch pulmonary emboli. No definite evidence of right heart strain. 2. Small bilateral pleural effusions and multifocal partially consolidative bilateral lower lobe parenchymal infiltrate. Critical Result: Pulmonary embolus Findings discussed with NAMAN HERNANDEZ at 02/13/2025 05:42 AM EST, and acknowledged receipt and understanding of the findings. ATED BY: EDY RODRÍGUEZ MD DICTATED DATE/TIME: 02/13/25 0242 PROCEDURE(s): ABDL - ABDOMEN LIMITED REASON: Transaminitis, elevated bilirrubin ORDER NUMBER(s): [id number], ACCESSION NUMBER(s): [id number] PROCEDURE: US ABDOMEN LIMITED Study Date and Requested Time: 02/13/2025 07:52 PM History: Transaminitis, elevated bilirrubin COMPARISON: None TECHNIQUE: Multiple high resolution stokes-scale images obtained of the right upper quadrant of the abdomen with color Doppler for evaluation of blood flow and vascularity as indicated. FINDINGS: Liver measures 20 cm in length, with homogeneous echotexture and normal contours. No evidence of focal hepatic lesions, intrahepatic or extrahepatic ductal dilatation. Common bile duct measures 0.5 cm in diameter. Gallbladder is contracted limited evaluation. Negative sonographic Sanders's sign. Pancreas is partially visualized due to overlying bowel gas Right kidney measures 11.3 cm in length, with normal contours, echotexture, and cortical thickness. No evidence of hydronephrosis, calculi, cystic or solid renal lesions. Partially visualized inferior vena cava unremarkable. IMPRESSION: Hepatomegaly. Pancreas is partially obscured by bowel gas. 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 Medications: Eliquis 10mg po BID x 7 days, then 5 BID daily Azithromicyn 250mg po daily for 5 days Phenergan 12.5ml po Q8hr prn for cough Scheduled Apixaban Base (Eliquis), 5 MG PO BID, (Reported) Apixaban Base (Eliquis), 10 MG PO BID Azithromycin (Zithromax Z-Hari), 250 MG PO DAILY Empagliflozin (Jardiance), 25 MG PO DAILY, (Reported) Furosemide (Lasix), 40 MG PO DAILY, (Reported) Hydroxyzine Hcl (Hydroxyzine Hcl), 1 TAB PO HS, (Reported) Metoprolol Succinate (Metoprolol Succinate Er), 100 MG PO DAILY, (Reported) Sacubitril-Valsartan (Entresto 24-26 mg), 1 TAB PO BID, (Reported) Spironolactone (Aldactone), 0.5 TAB PO DAILY, (Reported) Scheduled PRN Promethazine-Dm (Promethazine Dm 6.25-15 mg/5Ml), 1 EDI PO TID PRN Discharge Statement: "Patient was advised to return to the ER or call 911 if any headaches, dizziness, shortness of breath, chest pain, abdominal pain, bleeding, fevers, or worsening of medical condition. Patient was counseled about treatment plan, medications, possible side effects, patientverbalized understanding. All questions were answered to the best of my ability. 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 Cheng, Cardiology at [facility] Patient's status and discharge plan discussed with the patient >30min. Patient agrees with the discharge plan Case discussed with Dr. Hargrove Visit Coding STANDARD RES Billing Provider: KAITLIN WYMAN MD Date of Service if different f: Feb 15, 2025 Common Visit Codes: 36028-NES/OBS DISCH DAY >30min GIO BLEVINS RESIDENT Feb 15, 2025 10:50
[2025-02-15] MEDS ORDERED: PROM1SOL4 PO (11:00)
[2025-02-15] MEDS ORDERED: APIX5TAB PO (11:00)
[2025-02-15] MEDS ORDERED: AZITTAB PO (11:02)
[2025-02-15 11:18] VITALS: BP 116/74; PULSE 105; RESP 20; TEMP 37.1; O2SAT 94
--- NOTE | 2025-02-15 15:44 | DVHPN2 ---
Progress Note - Dictate Date Seen: Feb 15, 2025 Has the PT tested + for MRSA If YES, has PT been informed?: No Medical Necessity Reason Pt with a Central, PICC or Fol: No Subjective Patient was seen and evaluated in follow up. Echocardiogram showed an LVEF of 10%. Patient is cardiac stable for discharge. Telemetry reviewed. vital signs Vital Sign Date Time Temp Pulse Resp B/P (MAP) Pulse Ox O2 Delivery O2 Flow Rate FiO2 02/15/25 11:18 37.1 105 20 94 02/15/25 09:00 116/74 (88) 02/15/25 08:26 Room Air* 0 21 Total Intake and Output 02/14/25 02/14/25 02/15/25 15:00 23:00 07:00 Intake Total 300 ml 772 ml 460 ml Output Total 1900 ml 2350 ml Balance 300 ml -1128 ml -1890 ml objective GENERAL: Alert and oriented x 3. No acute distress. Morbidly obese. EYES: PERRL, EOMI. Anicteric. HENT: Moist mucous membranes. LUNGS: Clear to auscultation bilaterally. CARDIOVASCULAR: Regular rate and rhythm. ABDOMEN: Soft, non-tender and non-distended. EXTREMITIES: No edema. NEUROLOGIC: No focal neurological deficits. SKIN: Warm, dry. laboratory and microbiology Laboratory Tests 02/15/25 06:00 Test 02/15/25 06:00 Range/Units Serum Glucose 95 74-106 mg/dL Problem List Sepsis with pneumonia. Acute on chronic decompensated HFrEF, NYHA Class III. Nonischemic/dilated cardiomyopathy. Acute pulmonary embolism. NSTEMI, likely type 2 secondary to above. History of PE/bilateral lower extremity DVT in 12/2023 (on Eliquis). Hypertension. Dyslipidemia. Prediabetes, newly diagnosed. Medical noncompliance. Morbid obesity. Assessment/Plan Continued all current supportive medical care. Eliquis. Metoprolol. Entresto. GI prophylactics. Diuretics with Lasix. IV antibiotics as ordered. Additional plan as per the hospital course. Plan discussed with: Patient ANA SALAZAR MD Feb 15, 2025 12:52
[2025-02-22] MEDS ORDERED: APIXABAN 5 MG TAB PO SCH (10:00)
== END 2025-02-15 11:50 | disposition home or self-care (01) | DRG 720 ==
LOC: ER 20:10 → EDBD 20:10 → OVERFLOW 23:35 → TELE-CENTR 02-13 03:19
PROVIDERS: ADMIT Student in an Organized Health Care Education/Training Program; ATTEND Student in an Organized Health Care Education/Training Program
DX: A41.50 Gram-negative sepsis, unspecified (principal); I26.99 Other pulmonary embolism without acute cor pulmonale; N17.0 Acute kidney failure with tubular necrosis; J96.01 Acute respiratory failure with hypoxia; I50.23 Acute on chronic systolic (congestive) heart failure; J15.69 Pneumonia due to other Gram-negative bacteria; I21.A1 Myocardial infarction type 2; I13.0 Hypertensive heart and chronic kidney disease with heart failure and stage 1 through stage 4 chronic kidney disease, or unspecified chronic kidney disease; Z68.41 Body mass index [BMI] 40.0-44.9, adult; N18.9 Chronic kidney disease, unspecified; E11.22 Type 2 diabetes mellitus with diabetic chronic kidney disease; Z20.822 Contact with and (suspected) exposure to COVID-19; E66.01 Morbid (severe) obesity due to excess calories; R74.01 Elevation of levels of liver transaminase levels; I42.0 Dilated cardiomyopathy; E78.5 Hyperlipidemia, unspecified; Z86.718 Personal history of other venous thrombosis and embolism; Z86.711 Personal history of pulmonary embolism; I25.2 Old myocardial infarction; Z91.148 Patient's other noncompliance with medication regimen for other reason; Z82.49 Family history of ischemic heart disease and other diseases of the circulatory system
CPT/HCPCS: 36415; 71045; 71275; 76705; 80048; 80053; 80061; 80307; 81001; 83036; 83605; 83735; 83880; 84443; 84484; 85007; 85025; 85027; 85610; 85730; 87040; 87426; 87804; 93005; 93306; 93970; 96365; 96375; G0378; J2470